=== PATIENT | female | born 1985 | race African-American/Black ===

== ENCOUNTER 2021-09-29 10:11 | Inpatient (IN) ==
[2021-09-29 10:39] LABS: Basophils % 0.4 % (0.0-0.8); Eosinophils # 0.4 10*3/uL (0.0-0.87); Eosinophils % 5.7 % (0.00-10.9); Hematocrit 24.9 VOL% (35.7-47.0); Hemoglobin 7.5 GM/DL (12.0-16.0); Immature Granulocytes % 0.3 %; Immature Granulocytes Absolute 0.02 #; Lymphocytes # 0.9 10*3/uL (1.4-4.0); Lymphocytes % 13.1 % (21.3-54.2); Mean Corpuscular HGB Conc 30.1 GM/DL (32-36); Mean Corpuscular Volume 88.3 FL (87-102); Mean Platelet Volume 10.1 FL (9.6-12.0); Monocytes % 7.1 % (1.7-12.7); Neutrophils % 73.4 % (38.7-73.9); Platelet Count 292 T/CUMM (130-400); Red Blood Count 2.82 MC/CUMM (3.8-5.5); Red Cell Distribution Width 19.5 % (9.3-17.3); White Blood Count 6.8 T/CUMM (4-12)
[2021-09-29] MEDS ORDERED: ASPIRIN 325 MG TABLET PO STA (10:44)
[2021-09-29 10:58] LABS: Albumin 2.9 G/DL (3.4-5.0); Bilirubin,Total 0.5 MG/DL (0.20-1.00); Calcium 10.4 MG/DL (8.5-10.1); Osmolality,Calculated 280.7 MOS/KG (273-304); Potassium 4.1 MMOL/L (3.5-5.1); Total Protein 6.8 G/DL (6.4-8.2)
[2021-09-29] MEDS ORDERED: ONDANSETRON 4 MG/2 ML VIAL IV STA (12:19)
[2021-09-29] MEDS ORDERED: HYDROmorphone 2 MG/1 ML VIAL IV STA (12:19)
[2021-09-29] MEDS ORDERED: guaiFENesin/DM ER 600-30 MG TABLET PO PRN (12:53)
[2021-09-29] MEDS ORDERED: DEXTROSE 50% 25 GM/50 ML SYRINGE IV PRN (12:53)
[2021-09-29] MEDS ORDERED: GLUCAGON 1 MG VIAL IM PRN (12:53)
[2021-09-29] MEDS: AZITHROMYCIN 250 MG TABLET PO SCH (14:27)
[2021-09-29] MEDS: cefTRIAXone 1,000 MG in SODIUM CHLORIDE 0.9% 100 ML IV SCH (14:27)
[2021-09-29] MEDS: INSULIN LISPRO 100 UNIT/ML SUBCUT SCH ×2 (17:22→22:17)
[2021-09-29] MEDS: ACETAMINOPHEN 325 MG TABLET PO PRN (19:49)
[2021-09-29] MEDS: HEPARIN 5,000 UNIT/1 ML VIAL SUBCUT SCH (21:40)
[2021-09-30] MEDS: HYDROmorphone 2 MG/1 ML VIAL IV PRN ×3 (02:27→18:23)
[2021-09-30 05:50] LABS: Basophils % 0.4 % (0.0-0.8); Eosinophils # 0.6 10*3/uL (0.0-0.87); Eosinophils % 5.4 % (0.00-10.9); Hematocrit 24.9 VOL% (35.7-47.0); Hemoglobin 7.6 GM/DL (12.0-16.0); Immature Granulocytes % 0.4 %; Immature Granulocytes Absolute 0.04 #; Lymphocytes # 0.8 10*3/uL (1.4-4.0); Lymphocytes % 8.1 % (21.3-54.2); Mean Corpuscular HGB Conc 30.5 GM/DL (32-36); Mean Corpuscular Volume 88.6 FL (87-102); Mean Platelet Volume 10.2 FL (9.6-12.0); Monocytes % 5.2 % (1.7-12.7); Neutrophils % 80.5 % (38.7-73.9); Platelet Count 290 T/CUMM (130-400); Red Blood Count 2.81 MC/CUMM (3.8-5.5); Red Cell Distribution Width 19.4 % (9.3-17.3); White Blood Count 10.4 T/CUMM (4-12)
[2021-09-30 06:30] LABS: Albumin 2.8 G/DL (3.4-5.0); Bilirubin,Total 1.4 MG/DL (0.20-1.00); Calcium 9.8 MG/DL (8.5-10.1); Osmolality,Calculated 278.8 MOS/KG (273-304); Potassium 4.9 MMOL/L (3.5-5.1); Total Protein 6.8 G/DL (6.4-8.2)
[2021-09-30] MEDS ORDERED: amLODIPine 10 MG TABLET PO SCH (09:00)
[2021-09-30] MEDS: AZITHROMYCIN 250 MG TABLET PO SCH (09:35)
[2021-09-30] MEDS: HEPARIN 5,000 UNIT/1 ML VIAL SUBCUT SCH ×2 (09:35→21:32)
[2021-09-30] MEDS: INSULIN LISPRO 100 UNIT/ML SUBCUT SCH ×4 (10:25→21:52)
[2021-09-30] MEDS ORDERED: ALBUTEROL/IPRATROPIUM 3 ML NEB RESP TX PRN (12:30)
[2021-09-30] MEDS: PANTOPRAZOLE 40 MG TABLET PO SCH (13:31)
[2021-09-30] MEDS: ACETAMINOPHEN 325 MG TABLET PO PRN (13:31)
[2021-09-30] MEDS: cefTRIAXone 1,000 MG in SODIUM CHLORIDE 0.9% 100 ML IV SCH (13:31)
[2021-09-30] MEDS: METOPROLOL TARTRATE 50 MG TABLET PO SCH (21:32)
[2021-10-01] MEDS: ACETAMINOPHEN 325 MG TABLET PO PRN ×3 (01:11→08:56)
[2021-10-01 02:17] LABS: Barbiturates Screen,Urine Negative (Negative); Benzodiazepines Screen,Urine Negative (Negative); Cannabinoid Screen,Urine Negative (Negative); Opiate Screen,Urine Negative (Negative); Phencyclidine Screen,Urine Negative (Negative)
[2021-10-01 05:46] LABS: Basophils % 0.3 % (0.0-0.8); Eosinophils # 0.5 10*3/uL (0.0-0.87); Hematocrit 25.5 VOL% (35.7-47.0); Hemoglobin 7.7 GM/DL (12.0-16.0); Immature Granulocytes % 0.6 %; Immature Granulocytes Absolute 0.04 #; Lymphocytes # 1.1 10*3/uL (1.4-4.0); Mean Corpuscular HGB Conc 30.2 GM/DL (32-36); Mean Corpuscular Volume 88.2 FL (87-102); Mean Platelet Volume 10.3 FL (9.6-12.0); Monocytes % 9.4 % (1.7-12.7); Neutrophils % 65.7 % (38.7-73.9); Platelet Count 248 T/CUMM (130-400); Red Blood Count 2.89 MC/CUMM (3.8-5.5); Red Cell Distribution Width 19.4 % (9.3-17.3); White Blood Count 6.6 T/CUMM (4-12)
[2021-10-01 05:57] LABS: Albumin 2.7 G/DL (3.4-5.0); Bilirubin,Total 0.6 MG/DL (0.20-1.00); Potassium 4.9 MMOL/L (3.5-5.1); Total Protein 6.8 G/DL (6.4-8.2)
[2021-10-01 08:21] LABS: Amorphous Crystals,Urine Few /HPF (Few); Bacteria,Urine Occasional /HPF (Few); Bilirubin,Urine Negative (Negative); Blood, Urine Negative (Negative); Glucose,Urine (UA) 50 mg/dL (Negative); Ketones,Urine Negative (Negative); Nitrite,Urine Negative (Negative); Protein,Urine 100 MG/DL; RBC,Urine 3 /HPF (0-4); Renal Epithelial Cells,Urine Occasional /HPF (<1); Squamous Epithelial Cell,Urine Moderate /HPF (0-10); Urine Appearance Slightly Hazy (Clear); Urine Color Yellow (Yellow); Urine Specific Gravity 1.009 (1.001-1.035); Urine Urobilinogen < 2.0 EU/DL (<2.0)
[2021-10-01] MEDS: AZITHROMYCIN 250 MG TABLET PO SCH (08:56)
[2021-10-01] MEDS: amLODIPine 10 MG TABLET PO SCH (08:56)
[2021-10-01] MEDS: PANTOPRAZOLE 40 MG TABLET PO SCH (08:56)
[2021-10-01] MEDS: METOPROLOL TARTRATE 50 MG TABLET PO SCH ×2 (08:57→21:40)
[2021-10-01] MEDS: HEPARIN 5,000 UNIT/1 ML VIAL SUBCUT SCH ×2 (08:57→21:44)
[2021-10-01] MEDS: INSULIN LISPRO 100 UNIT/ML SUBCUT SCH ×4 (09:36→22:29)
[2021-10-01] MEDS: MORPHINE 2 MG/1 ML SYRINGE IV PRN ×2 (12:34→21:41)
[2021-10-01] MEDS: cefTRIAXone 1,000 MG in SODIUM CHLORIDE 0.9% 100 ML IV SCH (12:34)
[2021-10-02 05:44] LABS: Basophils % 0.5 % (0.0-0.8); Eosinophils # 0.7 10*3/uL (0.0-0.87); Eosinophils % 11.6 % (0.00-10.9); Hematocrit 27.1 VOL% (35.7-47.0); Immature Granulocytes % 0.2 %; Immature Granulocytes Absolute 0.01 #; Lymphocytes # 1.2 10*3/uL (1.4-4.0); Lymphocytes % 21.8 % (21.3-54.2); Mean Corpuscular HGB Conc 29.5 GM/DL (32-36); Mean Corpuscular Volume 88.3 FL (87-102); Mean Platelet Volume 10.6 FL (9.6-12.0); Monocytes % 12.6 % (1.7-12.7); Neutrophils % 53.3 % (38.7-73.9); Platelet Count 260 T/CUMM (130-400); Red Blood Count 3.07 MC/CUMM (3.8-5.5); Red Cell Distribution Width 18.8 % (9.3-17.3); White Blood Count 5.7 T/CUMM (4-12)
[2021-10-02 06:02] LABS: Albumin 2.6 G/DL (3.4-5.0); Bilirubin,Total 0.5 MG/DL (0.20-1.00); Calcium 9.9 MG/DL (8.5-10.1); Osmolality,Calculated 277.8 MOS/KG (273-304); Potassium 4.2 MMOL/L (3.5-5.1); Total Protein 6.8 G/DL (6.4-8.2)
[2021-10-02 06:27] LABS: Eosinophils 13 % (0-10); Lymphocytes 28 % (20-55); Platelet Estimate Normal; Segmented Neutrophils 51 % (50-85); Total Cells Counted 100
[2021-10-02] MEDS: MORPHINE 2 MG/1 ML SYRINGE IV PRN ×3 (07:43→22:12)
[2021-10-02] MEDS: amLODIPine 10 MG TABLET PO SCH (09:04)
[2021-10-02] MEDS: AZITHROMYCIN 250 MG TABLET PO SCH (09:04)
[2021-10-02] MEDS: PANTOPRAZOLE 40 MG TABLET PO SCH (09:04)
[2021-10-02] MEDS: METOPROLOL TARTRATE 50 MG TABLET PO SCH ×2 (09:04→21:20)
[2021-10-02] MEDS: HEPARIN 5,000 UNIT/1 ML VIAL SUBCUT SCH ×2 (09:05→21:20)
[2021-10-02] MEDS: INSULIN LISPRO 100 UNIT/ML SUBCUT SCH ×4 (11:05→21:10)
[2021-10-02] MEDS: cefTRIAXone 1,000 MG in SODIUM CHLORIDE 0.9% 100 ML IV SCH (13:09)
[2021-10-02] MEDS: ONDANSETRON 4 MG/2 ML VIAL IV PRN ×2 (16:05→22:14)
[2021-10-03 05:11] LABS: Basophils % 0.4 % (0.0-0.8); Eosinophils # 0.8 10*3/uL (0.0-0.87); Eosinophils % 12.1 % (0.00-10.9); Hematocrit 27.9 VOL% (35.7-47.0); Hemoglobin 8.4 GM/DL (12.0-16.0); Immature Granulocytes % 0.3 %; Immature Granulocytes Absolute 0.02 #; Lymphocytes # 1.4 10*3/uL (1.4-4.0); Lymphocytes % 21.1 % (21.3-54.2); Mean Corpuscular HGB Conc 30.1 GM/DL (32-36); Mean Corpuscular Volume 86.9 FL (87-102); Mean Platelet Volume 10.9 FL (9.6-12.0); Monocytes % 11.2 % (1.7-12.7); Neutrophils % 54.9 % (38.7-73.9); Platelet Count 237 T/CUMM (130-400); Red Blood Count 3.21 MC/CUMM (3.8-5.5); Red Cell Distribution Width 18.4 % (9.3-17.3); White Blood Count 6.7 T/CUMM (4-12)
[2021-10-03] MEDS: MORPHINE 2 MG/1 ML SYRINGE IV PRN ×3 (05:15→18:25)
[2021-10-03] MEDS: ONDANSETRON 4 MG/2 ML VIAL IV PRN ×3 (05:17→18:26)
[2021-10-03 05:23] LABS: INR 0.9; PT Patient Result 10.6 SECS (10.5-12.0)
[2021-10-03 05:42] LABS: Alanine Aminotransferase 40 U/L (13-56); Albumin 2.7 G/DL (3.4-5.0); Alkaline Phosphatase 186 U/L (45-117); Aspartate Amino Transferase 36 U/L (0-37); Bilirubin,Total < 0.39 MG/DL (0.20-1.00); Blood Urea Nitrogen 47 MG/DL (7-18); Calcium 9.6 MG/DL (8.5-10.1); Carbon Dioxide 21 MMOL/L (21-32); Estimated Glom Filtration Rate 7 ML/MIN; Glucose 80 MG/DL (74-106); Osmolality,Calculated 280.1 MOS/KG (273-304); Sodium 135 MMOL/L (136-145)
[2021-10-03 05:44] LABS: Eosinophils 9 % (0-10); Hypochromasia 1+; Lymphocytes 24 % (20-55); Microcytosis 1+; Platelet Estimate Adequate; Segmented Neutrophils 56 % (50-85); Total Cells Counted 100
[2021-10-03] MEDS: INSULIN LISPRO 100 UNIT/ML SUBCUT SCH ×3 (08:14→16:19)
[2021-10-03] MEDS: amLODIPine 10 MG TABLET PO SCH (09:39)
[2021-10-03] MEDS: AZITHROMYCIN 250 MG TABLET PO SCH (09:39)
[2021-10-03] MEDS: PANTOPRAZOLE 40 MG TABLET PO SCH (09:39)
[2021-10-03] MEDS: METOPROLOL TARTRATE 50 MG TABLET PO SCH ×2 (09:39→22:38)
[2021-10-03] MEDS: HEPARIN 5,000 UNIT/1 ML VIAL SUBCUT SCH ×2 (09:41→22:38)
[2021-10-03] MEDS: cefTRIAXone 1,000 MG in SODIUM CHLORIDE 0.9% 100 ML IV SCH (16:25)
[2021-10-04] MEDS: ONDANSETRON 4 MG/2 ML VIAL IV PRN ×3 (00:21→12:08)
[2021-10-04] MEDS: MORPHINE 2 MG/1 ML SYRINGE IV PRN ×3 (00:23→12:07)
[2021-10-04] MEDS: INSULIN LISPRO 100 UNIT/ML SUBCUT SCH ×3 (00:49→12:33)
[2021-10-04 05:19] LABS: Basophils # 0.1 10*3/uL (0.0-0.2); Basophils % 0.9 % (0.0-0.8); Eosinophils # 0.9 10*3/uL (0.0-0.87); Eosinophils % 15.2 % (0.00-10.9); Hematocrit 27.2 VOL% (35.7-47.0); Hemoglobin 8.1 GM/DL (12.0-16.0); Immature Granulocytes % 0.4 %; Immature Granulocytes Absolute 0.02 #; Lymphocytes # 1.4 10*3/uL (1.4-4.0); Lymphocytes % 24.1 % (21.3-54.2); Mean Corpuscular HGB Conc 29.8 GM/DL (32-36); Mean Corpuscular Volume 86.9 FL (87-102); Mean Platelet Volume 9.8 FL (9.6-12.0); Monocytes % 11.8 % (1.7-12.7); Neutrophils % 47.6 % (38.7-73.9); Platelet Count 272 T/CUMM (130-400); Red Blood Count 3.13 MC/CUMM (3.8-5.5); Red Cell Distribution Width 18.4 % (9.3-17.3); White Blood Count 5.6 T/CUMM (4-12)
[2021-10-04 05:52] LABS: Alanine Aminotransferase 35 U/L (13-56); Albumin 2.8 G/DL (3.4-5.0); Alkaline Phosphatase 176 U/L (45-117); Aspartate Amino Transferase 21 U/L (0-37); Bilirubin,Total < 0.39 MG/DL (0.20-1.00); Blood Urea Nitrogen 37 MG/DL (7-18); Calcium 10.3 MG/DL (8.5-10.1); Carbon Dioxide 25 MMOL/L (21-32); Estimated Glom Filtration Rate 8 ML/MIN; Glucose 77 MG/DL (74-106); Potassium 4.7 MMOL/L (3.5-5.1); Sodium 136 MMOL/L (136-145)
[2021-10-04 05:53] LABS: Eosinophils 16 % (0-10); Hypochromasia 1+; Lymphocytes 24 % (20-55); Microcytosis 1+; Platelet Estimate Adequate; Segmented Neutrophils 53 % (50-85); Total Cells Counted 100
[2021-10-04] MEDS: HEPARIN 5,000 UNIT/1 ML VIAL SUBCUT SCH (08:35)
[2021-10-04] MEDS: amLODIPine 10 MG TABLET PO SCH (08:36)
[2021-10-04] MEDS: PANTOPRAZOLE 40 MG TABLET PO SCH (08:36)
[2021-10-04] MEDS: AZITHROMYCIN 250 MG TABLET PO SCH (08:36)
[2021-10-04] MEDS: METOPROLOL TARTRATE 50 MG TABLET PO SCH (08:36)
[2021-10-04 10:27] LABS: Lymphocytes,Pleural Fluid 45 %; Monocytes,Pleural Fluid 9 %; Neutrophils,Pleural Fluid 46 %
[2021-10-04 10:32] LABS: RBC,Pleural Fluid 111 T/CUMM
[2021-10-04 10:50] LABS: Total Protein,Body Fluid 2.1 G/DL
[2021-10-04] MEDS: cefTRIAXone 1,000 MG in SODIUM CHLORIDE 0.9% 100 ML IV SCH (12:08)
[2021-10-04 12:17] VITALS: BP 141/93
== END 2021-10-04 15:33 | disposition home or self-care (01) | DRG 189 ==
LOC: EDBD → EDUNIT# → N.ED 10:11 → N.TELES 12:53 → SUATTDRO 12:53 → N.TELES 16:44
PROVIDERS: ADMIT Internal Medicine; ATTEND Internal Medicine

== ENCOUNTER 2021-11-03 19:12 | Inpatient (IN) ==
[2021-11-03] MEDS ORDERED: ONDANSETRON 4 MG/2 ML VIAL IV STA (20:05)
[2021-11-03] MEDS ORDERED: MORPHINE 2 MG/1 ML SYRINGE IV STA (20:05)
[2021-11-03 20:41] LABS: Basophils % 0.4 % (0.0-0.8); Eosinophils # 0.2 10*3/uL (0.0-0.87); Eosinophils % 2.8 % (0.00-10.9); Hematocrit 28.3 VOL% (35.7-47.0); Hemoglobin 8.7 GM/DL (12.0-16.0); Immature Granulocytes % 0.5 %; Immature Granulocytes Absolute 0.04 #; Lymphocytes # 0.6 10*3/uL (1.4-4.0); Lymphocytes % 7.7 % (21.3-54.2); Mean Corpuscular HGB Conc 30.7 GM/DL (32-36); Mean Corpuscular Volume 85.8 FL (87-102); Mean Platelet Volume 10.2 FL (9.6-12.0); Monocytes % 5.4 % (1.7-12.7); Neutrophils % 83.2 % (38.7-73.9); Platelet Count 178 T/CUMM (130-400); Red Cell Distribution Width 19.2 % (9.3-17.3); White Blood Count 8.1 T/CUMM (4-12)
[2021-11-03] MEDS ORDERED: hydrALAZINE 20 MG/1 ML VIAL IV STA (21:03)
[2021-11-03] MEDS ORDERED: HYDROmorphone 2 MG/1 ML VIAL IV ONE (21:18)
[2021-11-03 21:19] LABS: Albumin 3.1 G/DL (3.4-5.0); Bilirubin,Total 0.9 MG/DL (0.20-1.00); Calcium 9.3 MG/DL (8.5-10.1); Osmolality,Calculated 280.7 MOS/KG (273-304); Potassium 3.8 MMOL/L (3.5-5.1); Total Protein 7.3 G/DL (6.4-8.2)
[2021-11-03] MEDS ORDERED: ACETAMINOPHEN 325 MG TABLET PO PRN (21:41)
[2021-11-03] MEDS ORDERED: DEXTROSE 10% 250 ML BAG IV PRN (21:41)
[2021-11-03] MEDS ORDERED: LABETALOL 20 MG/4 ML SYRINGE IV STA (21:41)
[2021-11-03] MEDS ORDERED: GLUCAGON 1 MG VIAL IM PRN (21:41)
[2021-11-03] MEDS ORDERED: ONDANSETRON 4 MG/2 ML VIAL IV PRN (21:41)
[2021-11-04] MEDS: HYDROmorphone 2 MG/1 ML VIAL IV PRN ×3 (03:25→19:50)
[2021-11-04 05:24] LABS: Basophils % 0.2 % (0.0-0.8); Eosinophils # 0.3 10*3/uL (0.0-0.87); Eosinophils % 3.2 % (0.00-10.9); Hematocrit 23.2 VOL% (35.7-47.0); Immature Granulocytes % 0.4 %; Immature Granulocytes Absolute 0.03 #; Lymphocytes # 0.6 10*3/uL (1.4-4.0); Lymphocytes % 7.7 % (21.3-54.2); Mean Corpuscular HGB Conc 30.6 GM/DL (32-36); Mean Corpuscular Volume 86.2 FL (87-102); Mean Platelet Volume 10.5 FL (9.6-12.0); Monocytes % 7.1 % (1.7-12.7); Neutrophils % 81.4 % (38.7-73.9); Platelet Count 176 T/CUMM (130-400); Red Blood Count 2.69 MC/CUMM (3.8-5.5); Red Cell Distribution Width 19.2 % (9.3-17.3); White Blood Count 8.2 T/CUMM (4-12)
[2021-11-04 05:27] LABS: Calcium 9.9 MG/DL (8.5-10.1)
[2021-11-04 05:30] LABS: Hemoglobin 7.1 GM/DL (12.0-16.0)
[2021-11-04 06:16] LABS: Eosinophils 4 % (0-10); Hypochromia 1+; Lymphocytes 7 % (20-55); Microcytosis 1+; Platelet Estimate Adequate; Segmented Neutrophils 81 % (50-85); Total Cells Counted 100
[2021-11-04] MEDS: cefTRIAXone 1,000 MG in SODIUM CHLORIDE 0.9% 100 ML IV SCH (08:21)
[2021-11-04] MEDS ORDERED: MIDAZOLAM 2 MG/2 ML VIAL IV ONE (10:04)
[2021-11-04] MEDS ORDERED: fentaNYL 100 MCG/2 ML VIAL IV ONE (10:04)
[2021-11-04] MEDS: hydrALAZINE 20 MG/1 ML VIAL IV PRN ×2 (10:06→20:10)
[2021-11-04] MEDS: AZITHROMYCIN INJ 500 MG in SODIUM CHLORIDE 0.9% 250 ML IV SCH (10:06)
[2021-11-04 10:15] LABS: PT Patient Result 11.6 SECS (10.5-12.0)
[2021-11-04] MEDS: SODIUM CHLORIDE 0.45% 1,000 ML IV SCH (10:45)
[2021-11-04] MEDS ORDERED: LABETALOL 20 MG/4 ML SYRINGE IV ONE (13:06)
[2021-11-04] MEDS: PANTOPRAZOLE 40 MG TABLET PO SCH (17:29)
[2021-11-04 20:03] LABS: Hematocrit 24.6 VOL% (35.7-47.0); Hemoglobin 7.2 GM/DL (12.0-16.0)
[2021-11-05] MEDS: HYDROmorphone 2 MG/1 ML VIAL IV PRN ×4 (00:16→18:47)
[2021-11-05 05:11] LABS: Basophils % 0.2 % (0.0-0.8); Eosinophils # 0.2 10*3/uL (0.0-0.87); Hematocrit 21.4 VOL% (35.7-47.0); Immature Granulocytes % 0.4 %; Immature Granulocytes Absolute 0.03 #; Lymphocytes # 0.7 10*3/uL (1.4-4.0); Lymphocytes % 8.7 % (21.3-54.2); Mean Corpuscular HGB Conc 29.9 GM/DL (32-36); Mean Corpuscular Volume 88.4 FL (87-102); Mean Platelet Volume 10.1 FL (9.6-12.0); Monocytes % 9.5 % (1.7-12.7); Neutrophils % 78.2 % (38.7-73.9); Platelet Count 157 T/CUMM (130-400); Red Blood Count 2.42 MC/CUMM (3.8-5.5); Red Cell Distribution Width 18.6 % (9.3-17.3)
[2021-11-05 05:25] LABS: Calcium 9.6 MG/DL (8.5-10.1); Osmolality,Calculated 276.8 MOS/KG (273-304); Potassium 4.5 MMOL/L (3.5-5.1)
[2021-11-05 05:28] LABS: Hemoglobin 6.4 GM/DL (12.0-16.0)
[2021-11-05] MEDS: cefTRIAXone 1,000 MG in SODIUM CHLORIDE 0.9% 100 ML IV SCH (06:37)
[2021-11-05] MEDS: AZITHROMYCIN INJ 500 MG in SODIUM CHLORIDE 0.9% 250 ML IV SCH (07:12)
[2021-11-05] MEDS ORDERED: SODIUM CHLORIDE 0.9% 1,000 ML IV PRN (08:40)
[2021-11-05] MEDS: SEVELAMER CARBONATE 800 MG TABLET PO SCH ×3 (09:12→17:22)
[2021-11-05] MEDS: PANTOPRAZOLE 40 MG TABLET PO SCH (09:45)
[2021-11-05] MEDS: SODIUM CHLORIDE 0.45% 1,000 ML IV SCH (12:57)
[2021-11-05] MEDS: hydrALAZINE 20 MG/1 ML VIAL IV PRN (14:48)
[2021-11-05] MEDS: PIPERACILLIN/TAZOBACTAM 3,375 MG in SODIUM CHLORIDE 0.9% 100 ML IV SCH (18:30)
[2021-11-05 18:34] LABS: Hematocrit 25.8 VOL% (35.7-47.0)
[2021-11-05 18:35] LABS: Hemoglobin 8.1 GM/DL (12.0-16.0)
[2021-11-05] MEDS: lisinopriL 10 MG TABLET PO SCH (21:00)
[2021-11-06] MEDS: HYDROmorphone 2 MG/1 ML VIAL IV PRN ×5 (00:05→20:59)
[2021-11-06 05:15] LABS: Calcium 9.5 MG/DL (8.5-10.1); Potassium 4.7 MMOL/L (3.5-5.1)
[2021-11-06] MEDS: PIPERACILLIN/TAZOBACTAM 3,375 MG in SODIUM CHLORIDE 0.9% 100 ML IV SCH ×2 (05:56→18:20)
[2021-11-06 06:01] LABS: Basophils % 0.3 % (0.0-0.8); Eosinophils # 0.4 10*3/uL (0.0-0.87); Eosinophils % 4.5 % (0.00-10.9); Hematocrit 25.7 VOL% (35.7-47.0); Hemoglobin 7.8 GM/DL (12.0-16.0); Immature Granulocytes % 0.3 %; Immature Granulocytes Absolute 0.02 #; Lymphocytes # 0.8 10*3/uL (1.4-4.0); Lymphocytes % 9.5 % (21.3-54.2); Mean Corpuscular HGB Conc 30.4 GM/DL (32-36); Mean Corpuscular Volume 87.1 FL (87-102); Mean Platelet Volume 9.9 FL (9.6-12.0); Monocytes % 10.8 % (1.7-12.7); Neutrophils % 74.6 % (38.7-73.9); Platelet Count 161 T/CUMM (130-400); Red Blood Count 2.95 MC/CUMM (3.8-5.5); Red Cell Distribution Width 17.3 % (9.3-17.3)
[2021-11-06] MEDS: AZITHROMYCIN INJ 500 MG in SODIUM CHLORIDE 0.9% 250 ML IV SCH (06:43)
[2021-11-06] MEDS: SEVELAMER CARBONATE 800 MG TABLET PO SCH ×3 (09:39→18:20)
[2021-11-06] MEDS: PANTOPRAZOLE 40 MG TABLET PO SCH (09:39)
[2021-11-06] MEDS: lisinopriL 10 MG TABLET PO SCH (09:39)
[2021-11-06] MEDS: SODIUM CHLORIDE 0.45% 1,000 ML IV SCH (09:52)
[2021-11-06 14:56] LABS: Hematocrit 24.3 VOL% (35.7-47.0); Hemoglobin 7.6 GM/DL (12.0-16.0)
[2021-11-07 04:56] LABS: Basophils % 0.4 % (0.0-0.8); Eosinophils # 0.4 10*3/uL (0.0-0.87); Eosinophils % 5.2 % (0.00-10.9); Hematocrit 24.6 VOL% (35.7-47.0); Hemoglobin 7.4 GM/DL (12.0-16.0); Immature Granulocytes % 0.5 %; Immature Granulocytes Absolute 0.04 #; Lymphocytes # 0.9 10*3/uL (1.4-4.0); Mean Corpuscular HGB Conc 30.1 GM/DL (32-36); Mean Corpuscular Volume 86.3 FL (87-102); Mean Platelet Volume 10.1 FL (9.6-12.0); Monocytes % 9.1 % (1.7-12.7); Neutrophils % 73.8 % (38.7-73.9); Platelet Count 212 T/CUMM (130-400); Red Blood Count 2.85 MC/CUMM (3.8-5.5); Red Cell Distribution Width 17.2 % (9.3-17.3); White Blood Count 8.2 T/CUMM (4-12)
[2021-11-07] MEDS: HYDROmorphone 2 MG/1 ML VIAL IV PRN ×4 (05:08→21:17)
[2021-11-07 05:16] LABS: Calcium 9.2 MG/DL (8.5-10.1); Osmolality,Calculated 276.1 MOS/KG (273-304); Potassium 4.9 MMOL/L (3.5-5.1)
[2021-11-07] MEDS: AZITHROMYCIN INJ 500 MG in SODIUM CHLORIDE 0.9% 250 ML IV SCH (06:15)
[2021-11-07] MEDS: PIPERACILLIN/TAZOBACTAM 3,375 MG in SODIUM CHLORIDE 0.9% 100 ML IV SCH ×2 (06:15→17:48)
[2021-11-07] MEDS: PANTOPRAZOLE 40 MG TABLET PO SCH (09:09)
[2021-11-07] MEDS: SEVELAMER CARBONATE 800 MG TABLET PO SCH ×3 (09:09→17:36)
[2021-11-07] MEDS: lisinopriL 20 MG TABLET PO SCH (09:09)
[2021-11-07] MEDS: SODIUM CHLORIDE 0.45% 1,000 ML IV SCH (14:44)
[2021-11-07 15:10] LABS: Hematocrit 24.6 VOL% (35.7-47.0); Hemoglobin 7.6 GM/DL (12.0-16.0)
[2021-11-07] MEDS ORDERED: POLYETHYLENE GLYCOL POWDER 17 GM PACK PO PRN (19:43)
[2021-11-08] MEDS: HYDROmorphone 2 MG/1 ML VIAL IV PRN ×6 (01:15→23:57)
[2021-11-08 05:42] LABS: Basophils % 0.4 % (0.0-0.8); Eosinophils # 0.4 10*3/uL (0.0-0.87); Eosinophils % 6.1 % (0.00-10.9); Hematocrit 24.7 VOL% (35.7-47.0); Hemoglobin 7.6 GM/DL (12.0-16.0); Immature Granulocytes % 0.4 %; Immature Granulocytes Absolute 0.03 #; Lymphocytes # 0.7 10*3/uL (1.4-4.0); Lymphocytes % 10.5 % (21.3-54.2); Mean Corpuscular HGB Conc 30.8 GM/DL (32-36); Mean Corpuscular Volume 86.7 FL (87-102); Mean Platelet Volume 10.3 FL (9.6-12.0); Monocytes % 9.2 % (1.7-12.7); Neutrophils % 73.4 % (38.7-73.9); Platelet Count 257 T/CUMM (130-400); Red Blood Count 2.85 MC/CUMM (3.8-5.5); Red Cell Distribution Width 17.1 % (9.3-17.3); White Blood Count 6.8 T/CUMM (4-12)
[2021-11-08 06:08] LABS: Calcium 9.9 MG/DL (8.5-10.1); Potassium 4.6 MMOL/L (3.5-5.1)
[2021-11-08] MEDS: AZITHROMYCIN INJ 500 MG in SODIUM CHLORIDE 0.9% 250 ML IV SCH (06:08)
[2021-11-08] MEDS: PIPERACILLIN/TAZOBACTAM 3,375 MG in SODIUM CHLORIDE 0.9% 100 ML IV SCH ×2 (06:48→18:23)
[2021-11-08] MEDS: lisinopriL 20 MG TABLET PO SCH (09:11)
[2021-11-08] MEDS: PANTOPRAZOLE 40 MG TABLET PO SCH (09:11)
[2021-11-08] MEDS: SEVELAMER CARBONATE 800 MG TABLET PO SCH ×3 (09:11→16:09)
[2021-11-08] MEDS: SODIUM CHLORIDE 0.45% 1,000 ML IV SCH (13:22)
[2021-11-08 15:03] LABS: Hematocrit 25.5 VOL% (35.7-47.0)
[2021-11-08] MEDS: hydrALAZINE 20 MG/1 ML VIAL IV PRN (15:54)
[2021-11-09] MEDS: HYDROmorphone 2 MG/1 ML VIAL IV PRN ×3 (02:35→11:47)
[2021-11-09 04:38] LABS: Basophils % 0.6 % (0.0-0.8); Eosinophils # 0.3 10*3/uL (0.0-0.87); Eosinophils % 5.4 % (0.00-10.9); Hematocrit 26.9 VOL% (35.7-47.0); Hemoglobin 8.2 GM/DL (12.0-16.0); Immature Granulocytes % 0.5 %; Immature Granulocytes Absolute 0.03 #; Lymphocytes # 0.8 10*3/uL (1.4-4.0); Lymphocytes % 13.3 % (21.3-54.2); Mean Corpuscular HGB Conc 30.5 GM/DL (32-36); Mean Corpuscular Volume 85.9 FL (87-102); Mean Platelet Volume 10.2 FL (9.6-12.0); Monocytes % 9.8 % (1.7-12.7); Neutrophils % 70.4 % (38.7-73.9); Platelet Count 289 T/CUMM (130-400); Red Blood Count 3.13 MC/CUMM (3.8-5.5); Red Cell Distribution Width 16.9 % (9.3-17.3); White Blood Count 6.2 T/CUMM (4-12)
[2021-11-09 04:58] LABS: Osmolality,Calculated 270.1 MOS/KG (273-304); Potassium 4.7 MMOL/L (3.5-5.1)
[2021-11-09] MEDS: AZITHROMYCIN INJ 500 MG in SODIUM CHLORIDE 0.9% 250 ML IV SCH (06:35)
[2021-11-09] MEDS: PIPERACILLIN/TAZOBACTAM 3,375 MG in SODIUM CHLORIDE 0.9% 100 ML IV SCH ×2 (07:41→19:06)
[2021-11-09] MEDS: PANTOPRAZOLE 40 MG TABLET PO SCH (08:54)
[2021-11-09] MEDS: SEVELAMER CARBONATE 800 MG TABLET PO SCH ×3 (08:55→17:20)
[2021-11-09] MEDS ORDERED: amLODIPine 5 MG TABLET PO SCH (09:00)
[2021-11-09] MEDS: lisinopriL 20 MG TABLET PO SCH (11:48)
[2021-11-09] MEDS: SODIUM CHLORIDE 0.45% 1,000 ML IV SCH (12:48)
[2021-11-09 15:00] LABS: Hematocrit 25.5 VOL% (35.7-47.0)
[2021-11-09 18:02] VITALS: BP 171/99
== END 2021-11-09 19:05 | disposition home health service (06) | DRG 981 ==
LOC: EDUNIT# → EDBD → N.EDINP 19:12 → N.ED 19:12 → N.EDINP 11-04 15:30 → N.TELEN 11-04 17:53 → SUATTDRO 11-05 12:03
PROVIDERS: ADMIT Hospitalist; ATTEND Emergency Medicine

== ENCOUNTER 2021-12-14 02:57 | Observation (INO) ==
[2021-12-14] MEDS ORDERED: hydrALAZINE 20 MG/1 ML VIAL IV STA ×2 (03:18→04:32)
[2021-12-14] MEDS ORDERED: MORPHINE 4 MG/1 ML VIAL IV STA ×2 (03:18→05:09)
[2021-12-14] MEDS ORDERED: NITROGLYCERIN 2% OINT 1 INCH/GM PACK TOP STA (03:18)
[2021-12-14] MEDS ORDERED: ASPIRIN 325 MG TABLET PO STA (03:18)
[2021-12-14] MEDS ORDERED: ONDANSETRON 4 MG/2 ML VIAL IV STA (03:18)
[2021-12-14 03:52] LABS: Basophils % 0.6 % (0.0-0.8); Eosinophils # 0.4 10*3/uL (0.0-0.87); Eosinophils % 5.3 % (0.00-10.9); Hematocrit 28.3 VOL% (35.7-47.0); Hemoglobin 8.7 GM/DL (12.0-16.0); Immature Granulocytes % 0.5 %; Immature Granulocytes Absolute 0.03 #; Lymphocytes # 0.9 10*3/uL (1.4-4.0); Lymphocytes % 13.3 % (21.3-54.2); Mean Corpuscular HGB Conc 30.7 GM/DL (32-36); Mean Corpuscular Volume 88.4 FL (87-102); Monocytes % 8.4 % (1.7-12.7); Neutrophils % 71.9 % (38.7-73.9); Platelet Count 188 T/CUMM (130-400); Red Cell Distribution Width 18.6 % (9.3-17.3); White Blood Count 6.6 T/CUMM (4-12)
[2021-12-14 04:08] LABS: PT Patient Result 11.4 SECS (10.5-12.0); Partial Thromboplastin Time 27.6 SECS (23.8-32.1)
[2021-12-14 04:12] LABS: Albumin 3.1 G/DL (3.4-5.0); Bilirubin,Total 0.8 MG/DL (0.20-1.00); Calcium 10.5 MG/DL (8.5-10.1); Osmolality,Calculated 277.1 MOS/KG (273-304); Potassium 3.8 MMOL/L (3.5-5.1)
[2021-12-14] MEDS ORDERED: ACETAMINOPHEN 325 MG TABLET PO PRN (05:08)
[2021-12-14] MEDS ORDERED: GLUCAGON 1 MG VIAL IM PRN (05:08)
[2021-12-14] MEDS ORDERED: LABETALOL 20 MG/4 ML SYRINGE IV PRN (05:08)
[2021-12-14] MEDS ORDERED: DEXTROSE 10% 250 ML BAG IV PRN (05:08)
[2021-12-14] MEDS ORDERED: ONDANSETRON 4 MG/2 ML VIAL IV PRN (05:08)
[2021-12-14] MEDS ORDERED: ALBUTEROL/IPRATROPIUM 3 ML NEB RESP TX PRN (05:28)
[2021-12-14 05:44] LABS: Risk Ratio 2.05; Thyroid Stimulating Hormone 1.95 uIU/ml (0.358-3.74)
[2021-12-14] MEDS ORDERED: POLYETHYLENE GLYCOL POWDER 255 GM BOTTLE PO SCH (09:00)
[2021-12-14] MEDS ORDERED: minoxidiL 10 MG TABLET PO SCH (09:00)
[2021-12-14] MEDS: PANTOPRAZOLE 40 MG TABLET PO SCH (09:57)
[2021-12-14] MEDS: carvediloL 12.5 MG TABLET PO SCH ×2 (09:58→20:22)
[2021-12-14] MEDS: FAMOTIDINE 20 MG TABLET PO SCH ×2 (09:58→20:22)
[2021-12-14] MEDS: HEPARIN 5,000 UNIT/1 ML VIAL SUBCUT SCH ×2 (09:59→20:22)
[2021-12-14] MEDS: POLYETHYLENE GLYCOL POWDER 17 GM PACK PO SCH (10:01)
[2021-12-14] MEDS ORDERED: cloNIDine 0.1 MG TABLET PO ONE (16:42)
[2021-12-14] MEDS: MORPHINE 4 MG/1 ML VIAL IV PRN (19:38)
[2021-12-15] MEDS: MORPHINE 4 MG/1 ML VIAL IV PRN (01:14)
[2021-12-15] MEDS ORDERED: HYDROcodone/CHLORPHENIRAMINE ER 5 ML UDCUP PO PRN (01:17)
[2021-12-15 05:41] LABS: Basophils % 0.8 % (0.0-0.8); Eosinophils # 0.3 10*3/uL (0.0-0.87); Eosinophils % 8.3 % (0.00-10.9); Hematocrit 27.2 VOL% (35.7-47.0); Hemoglobin 8.3 GM/DL (12.0-16.0); Immature Granulocytes % 0.3 %; Immature Granulocytes Absolute 0.01 #; Lymphocytes # 0.9 10*3/uL (1.4-4.0); Lymphocytes % 22.6 % (21.3-54.2); Mean Corpuscular HGB Conc 30.5 GM/DL (32-36); Mean Corpuscular Volume 90.1 FL (87-102); Mean Platelet Volume 11.2 FL (9.6-12.0); Monocytes % 9.9 % (1.7-12.7); Neutrophils % 58.1 % (38.7-73.9); Platelet Count 149 T/CUMM (130-400); Red Blood Count 3.02 MC/CUMM (3.8-5.5); Red Cell Distribution Width 18.4 % (9.3-17.3); White Blood Count 3.9 T/CUMM (4-12)
[2021-12-15 05:59] LABS: Calcium 10.2 MG/DL (8.5-10.1); Potassium 4.2 MMOL/L (3.5-5.1)
[2021-12-15] MEDS: FAMOTIDINE 20 MG TABLET PO SCH ×2 (08:48→20:29)
[2021-12-15] MEDS: PANTOPRAZOLE 40 MG TABLET PO SCH (08:48)
[2021-12-15] MEDS: minoxidiL 2.5 MG TABLET PO SCH (08:48)
[2021-12-15] MEDS: POLYETHYLENE GLYCOL POWDER 17 GM PACK PO SCH (08:49)
[2021-12-15] MEDS: HEPARIN 5,000 UNIT/1 ML VIAL SUBCUT SCH ×2 (08:49→20:29)
[2021-12-15] MEDS: carvediloL 12.5 MG TABLET PO SCH ×2 (08:49→20:29)
[2021-12-15] MEDS: ISOSORBIDE MONONITRATE 60 MG TABLET PO SCH (08:53)
[2021-12-16] MEDS: MORPHINE 4 MG/1 ML VIAL IV PRN (08:14)
[2021-12-16] MEDS ORDERED: diphenhydrAMINE CAP 25 MG CAPSULE PO ONE (08:27)
[2021-12-16] MEDS: HEPARIN 5,000 UNIT/1 ML VIAL SUBCUT SCH (10:24)
[2021-12-16] MEDS: FAMOTIDINE 20 MG TABLET PO SCH (10:25)
[2021-12-16] MEDS: ISOSORBIDE MONONITRATE 60 MG TABLET PO SCH (10:25)
[2021-12-16] MEDS: minoxidiL 2.5 MG TABLET PO SCH (10:25)
[2021-12-16] MEDS: PANTOPRAZOLE 40 MG TABLET PO SCH (10:26)
[2021-12-16] MEDS: POLYETHYLENE GLYCOL POWDER 17 GM PACK PO SCH (10:27)
[2021-12-16] MEDS: carvediloL 12.5 MG TABLET PO SCH (10:27)
[2021-12-16 16:40] VITALS: BP 127/54
== END 2021-12-16 18:18 | disposition home or self-care (01) ==
LOC: SUATTDRO → EDBD → EDUNIT# → N.ED 02:57 → N.EDINP 02:57 → SUATTDRO 05:08 → N.EDINP 17:38 → N.TELES 18:34
PROVIDERS: ADMIT Internal Medicine; ATTEND Internal Medicine

== ENCOUNTER 2022-02-26 21:04 | Inpatient (IN) ==
[2022-02-26] MEDS ORDERED: FUROSEMIDE 100 MG/10 ML VIAL IV STA (21:22)
[2022-02-26] MEDS ORDERED: MORPHINE 2 MG/1 ML SYRINGE IV STA (21:22)
[2022-02-26] MEDS ORDERED: methylPREDNISolone SOD SUC 125 MG/2 ML VIAL IV STA (21:22)
[2022-02-26] MEDS ORDERED: ONDANSETRON 4 MG/2 ML VIAL IV STA (21:22)
[2022-02-26] MEDS ORDERED: ALBUTEROL/IPRATROPIUM 3 ML NEB RESP TX STA (21:22)
[2022-02-26 21:55] LABS: Basophils % 0.6 % (0.0-0.8); Eosinophils # 0.5 10*3/uL (0.0-0.87); Eosinophils % 7.3 % (0.00-10.9); Hematocrit 26.6 VOL% (35.7-47.0); Hemoglobin 8.4 GM/DL (12.0-16.0); Immature Granulocytes % 0.9 %; Immature Granulocytes Absolute 0.06 #; Lymphocytes # 0.7 10*3/uL (1.4-4.0); Mean Corpuscular HGB Conc 31.6 GM/DL (32-36); Mean Corpuscular Volume 83.6 FL (87-102); Monocytes # 0.5 10*3/uL (0.11-0.8); Monocytes % 6.8 % (1.7-12.7); Neutrophils % 74.4 % (38.7-73.9); Platelet Count 227 T/CUMM (130-400); Red Blood Count 3.18 MC/CUMM (3.8-5.5); Red Cell Distribution Width 18.4 % (9.3-17.3); White Blood Count 6.9 T/CUMM (4-12)
[2022-02-26 22:05] LABS: INR 1.1; PT Patient Result 11.7 SECS (10.5-12.0)
[2022-02-26 22:26] LABS: Albumin 3.5 G/DL (3.4-5.0); Bilirubin,Total 1.1 MG/DL (0.20-1.00); Calcium 8.8 MG/DL (8.5-10.1); Osmolality,Calculated 282.5 MOS/KG (273-304); Potassium 3.7 MMOL/L (3.5-5.1)
[2022-02-26] MEDS ORDERED: ONDANSETRON 4 MG/2 ML VIAL IV PRN (23:32)
[2022-02-26] MEDS ORDERED: ACETAMINOPHEN 325 MG TABLET PO PRN (23:32)
[2022-02-26] MEDS ORDERED: hydrALAZINE 20 MG/1 ML VIAL IV PRN (23:32)
[2022-02-27] MEDS: ALBUTEROL/IPRATROPIUM 3 ML NEB RESP TX SCH ×4 (01:14→19:34)
[2022-02-27] MEDS: MORPHINE 2 MG/1 ML SYRINGE IV PRN ×2 (02:58→09:27)
[2022-02-27 07:10] LABS: Basophils % 0.3 % (0.0-0.8); Eosinophils % 0.3 % (0.00-10.9); Hematocrit 27.4 VOL% (35.7-47.0); Hemoglobin 8.4 GM/DL (12.0-16.0); Immature Granulocytes % 0.8 %; Immature Granulocytes Absolute 0.05 #; Lymphocytes # 0.3 10*3/uL (1.4-4.0); Lymphocytes % 4.4 % (21.3-54.2); Mean Corpuscular HGB Conc 30.7 GM/DL (32-36); Mean Corpuscular Volume 85.1 FL (87-102); Mean Platelet Volume 10.7 FL (9.6-12.0); Monocytes # 0.1 10*3/uL (0.11-0.8); Monocytes % 1.2 % (1.7-12.7); Platelet Count 237 T/CUMM (130-400); Red Blood Count 3.22 MC/CUMM (3.8-5.5); Red Cell Distribution Width 18.7 % (9.3-17.3); White Blood Count 6.6 T/CUMM (4-12)
[2022-02-27 07:43] LABS: Eosinophils 1 % (0-10); Lymphocytes 3 % (20-55); Platelet Estimate Adequate; Total Cells Counted 100
[2022-02-27 07:44] LABS: Hypochromia Slight; Microcytosis Slight
[2022-02-27 08:22] LABS: Albumin 3.3 G/DL (3.4-5.0); Bilirubin,Total 0.9 MG/DL (0.20-1.00); Calcium 9.4 MG/DL (8.5-10.1); Osmolality,Calculated 284.8 MOS/KG (273-304); Potassium 4.3 MMOL/L (3.5-5.1); Total Protein 7.8 G/DL (6.4-8.2)
[2022-02-27] MEDS ORDERED: PANTOPRAZOLE 40 MG TABLET PO SCH (09:00)
[2022-02-27] MEDS: ENOXAPARIN 30 MG/0.3 ML SYRINGE SUBCUT SCH (09:29)
[2022-02-27] MEDS: carvediloL 6.25 MG TABLET PO SCH ×2 (16:33→21:29)
[2022-02-27] MEDS: ISOSORBIDE MONONITRATE 60 MG TABLET PO SCH (16:33)
[2022-02-27] MEDS: amLODIPine 10 MG TABLET PO SCH (16:33)
[2022-02-27] MEDS: POLYETHYLENE GLYCOL POWDER 17 GM PACK PO SCH (16:34)
[2022-02-27] MEDS: PANTOPRAZOLE 40 MG TABLET PO SCH (16:42)
[2022-02-27] MEDS: minoxidiL 2.5 MG TABLET PO SCH (21:29)
[2022-02-28] MEDS: ALBUTEROL/IPRATROPIUM 3 ML NEB RESP TX SCH ×3 (00:40→13:50)
[2022-02-28] MEDS: ISOSORBIDE MONONITRATE 60 MG TABLET PO SCH (08:08)
[2022-02-28] MEDS: carvediloL 6.25 MG TABLET PO SCH (08:08)
[2022-02-28] MEDS: PANTOPRAZOLE 40 MG TABLET PO SCH (08:09)
[2022-02-28] MEDS: ENOXAPARIN 30 MG/0.3 ML SYRINGE SUBCUT SCH (08:09)
[2022-02-28] MEDS: POLYETHYLENE GLYCOL POWDER 17 GM PACK PO SCH (08:09)
[2022-02-28] MEDS: minoxidiL 2.5 MG TABLET PO SCH (08:09)
[2022-02-28] MEDS: amLODIPine 10 MG TABLET PO SCH (09:00)
[2022-02-28 09:53] VITALS: BP 134/69
== END 2022-02-28 14:46 | disposition home or self-care (01) | DRG 291 ==
LOC: EDUNIT# → EDBD → N.ED 21:04 → N.EDINP 23:32 → N.TELEN 02-27 00:37
PROVIDERS: ADMIT Internal Medicine; ATTEND Internal Medicine

== ENCOUNTER 2022-04-21 22:25 | Inpatient (IN) ==
[2022-04-21] MEDS ORDERED: ASPIRIN 325 MG TABLET PO STA (22:49)
[2022-04-21] MEDS ORDERED: hydrALAZINE 20 MG/1 ML VIAL IV STA (22:49)
[2022-04-21] MEDS ORDERED: NITROGLYCERIN 2% OINT 1 INCH/GM PACK TOP STA (22:49)
[2022-04-21] MEDS ORDERED: ONDANSETRON 4 MG/2 ML VIAL IV STA (22:49)
[2022-04-21 23:01] LABS: Basophils % 0.5 % (0.0-0.8); Eosinophils # 0.4 10*3/uL (0.0-0.87); Eosinophils % 7.1 % (0.00-10.9); Hematocrit 24.4 VOL% (35.7-47.0); Hemoglobin 7.6 GM/DL (12.0-16.0); Immature Granulocytes % 0.5 %; Immature Granulocytes Absolute 0.03 #; Lymphocytes % 16.2 % (21.3-54.2); Mean Corpuscular HGB Conc 31.1 GM/DL (32-36); Mean Corpuscular Volume 83.3 FL (87-102); Mean Platelet Volume 10.6 FL (9.6-12.0); Monocytes # 0.6 10*3/uL (0.11-0.8); Monocytes % 10.3 % (1.7-12.7); Neutrophils % 65.4 % (38.7-73.9); Platelet Count 197 T/CUMM (130-400); Red Blood Count 2.93 MC/CUMM (3.8-5.5); Red Cell Distribution Width 18.9 % (9.3-17.3); White Blood Count 6.2 T/CUMM (4-12)
[2022-04-21 23:31] LABS: Calcium 10.2 MG/DL (8.5-10.1); Osmolality,Calculated 292.4 MOS/KG (273-304); Potassium 4.7 MMOL/L (3.5-5.1)
[2022-04-22] MEDS ORDERED: hydrALAZINE 20 MG/1 ML VIAL IV STA (00:40)
[2022-04-22] MEDS ORDERED: LABETALOL 20 MG/4 ML SYRINGE IV STA (00:53)
[2022-04-22] MEDS ORDERED: cloNIDine 0.1 MG TABLET PO STA (01:57)
[2022-04-22] MEDS ORDERED: ACETAMINOPHEN 325 MG TABLET PO PRN (01:57)
[2022-04-22] MEDS ORDERED: GLUCAGON 1 MG VIAL IM PRN (01:57)
[2022-04-22] MEDS ORDERED: DEXTROSE 10% 250 ML BAG IV PRN (01:57)
[2022-04-22] MEDS ORDERED: ONDANSETRON 4 MG/2 ML VIAL IV PRN (01:57)
[2022-04-22 05:19] LABS: Basophils # 0.1 10*3/uL (0.0-0.2); Basophils % 0.9 % (0.0-0.8); Eosinophils # 0.5 10*3/uL (0.0-0.87); Eosinophils % 7.5 % (0.00-10.9); Hematocrit 26.2 VOL% (35.7-47.0); Hemoglobin 8.1 GM/DL (12.0-16.0); Immature Granulocytes % 0.3 %; Immature Granulocytes Absolute 0.02 #; Lymphocytes # 0.8 10*3/uL (1.4-4.0); Lymphocytes % 11.2 % (21.3-54.2); Mean Corpuscular HGB Conc 30.9 GM/DL (32-36); Mean Corpuscular Volume 83.2 FL (87-102); Mean Platelet Volume 10.2 FL (9.6-12.0); Monocytes # 0.7 10*3/uL (0.11-0.8); Monocytes % 10.1 % (1.7-12.7); Platelet Count 198 T/CUMM (130-400); Red Blood Count 3.15 MC/CUMM (3.8-5.5); Red Cell Distribution Width 19.1 % (9.3-17.3)
[2022-04-22 05:50] LABS: Calcium 9.9 MG/DL (8.5-10.1); Osmolality,Calculated 287.8 MOS/KG (273-304); Potassium 4.5 MMOL/L (3.5-5.1); Thyroid Stimulating Hormone 1.81 uIU/ml (0.358-3.74)
[2022-04-22] MEDS: carvediloL 6.25 MG TABLET PO SCH ×2 (07:04→20:00)
[2022-04-22] MEDS: PANTOPRAZOLE 40 MG TABLET PO SCH (09:32)
[2022-04-22 10:29] LABS: Barbiturates Screen,Urine Negative (Negative); Benzodiazepines Screen,Urine Negative (Negative); Cannabinoid Screen,Urine Negative (Negative); Opiate Screen,Urine Negative (Negative); Phencyclidine Screen,Urine Negative (Negative)
[2022-04-22] MEDS: hydrALAZINE 20 MG/1 ML VIAL IV PRN ×2 (12:32→23:57)
[2022-04-22] MEDS: MORPHINE 2 MG/1 ML SYRINGE IV PRN (20:03)
[2022-04-23] MEDS: MORPHINE 2 MG/1 ML SYRINGE IV PRN ×5 (01:15→20:30)
[2022-04-23 06:05] LABS: Basophils # 0.1 10*3/uL (0.0-0.2); Basophils % 0.9 % (0.0-0.8); Eosinophils # 0.7 10*3/uL (0.0-0.87); Eosinophils % 11.3 % (0.00-10.9); Hematocrit 27.1 VOL% (35.7-47.0); Hemoglobin 8.2 GM/DL (12.0-16.0); Immature Granulocytes % 0.3 %; Immature Granulocytes Absolute 0.02 #; Lymphocytes % 16.9 % (21.3-54.2); Mean Corpuscular HGB Conc 30.3 GM/DL (32-36); Mean Corpuscular Volume 85.2 FL (87-102); Mean Platelet Volume 10.4 FL (9.6-12.0); Monocytes # 0.5 10*3/uL (0.11-0.8); Monocytes % 8.6 % (1.7-12.7); Platelet Count 189 T/CUMM (130-400); Red Blood Count 3.18 MC/CUMM (3.8-5.5); Red Cell Distribution Width 18.9 % (9.3-17.3); White Blood Count 5.7 T/CUMM (4-12)
[2022-04-23] MEDS: amLODIPine 10 MG TABLET PO SCH (06:12)
[2022-04-23] MEDS: hydrALAZINE 20 MG/1 ML VIAL IV PRN ×2 (06:12→12:18)
[2022-04-23 06:38] LABS: Eosinophils 11 % (0-10); Hypochromia 1+; Lymphocytes 14 % (20-55); Microcytosis 1+; Target Cells Slight; Total Cells Counted 100
[2022-04-23 06:39] LABS: Anisocytosis 1+; Calcium 10.7 MG/DL (8.5-10.1); Platelet Estimate Normal; Potassium 4.5 MMOL/L (3.5-5.1)
[2022-04-23] MEDS: carvediloL 6.25 MG TABLET PO SCH ×2 (09:34→20:30)
[2022-04-23] MEDS: PANTOPRAZOLE 40 MG TABLET PO SCH (09:34)
[2022-04-23] MEDS: ISOSORBIDE MONONITRATE 60 MG TABLET PO SCH (15:43)
[2022-04-24] MEDS: hydrALAZINE 20 MG/1 ML VIAL IV PRN (00:45)
[2022-04-24] MEDS: MORPHINE 2 MG/1 ML SYRINGE IV PRN ×3 (01:05→09:39)
[2022-04-24 05:26] LABS: Basophils % 0.6 % (0.0-0.8); Eosinophils # 0.6 10*3/uL (0.0-0.87); Eosinophils % 9.8 % (0.00-10.9); Hematocrit 25.8 VOL% (35.7-47.0); Hemoglobin 8.1 GM/DL (12.0-16.0); Immature Granulocytes % 0.3 %; Immature Granulocytes Absolute 0.02 #; Lymphocytes # 0.9 10*3/uL (1.4-4.0); Lymphocytes % 13.7 % (21.3-54.2); Mean Corpuscular HGB Conc 31.4 GM/DL (32-36); Mean Corpuscular Volume 84.6 FL (87-102); Mean Platelet Volume 10.7 FL (9.6-12.0); Monocytes # 0.6 10*3/uL (0.11-0.8); Monocytes % 8.7 % (1.7-12.7); Neutrophils % 66.9 % (38.7-73.9); Platelet Count 224 T/CUMM (130-400); Red Blood Count 3.05 MC/CUMM (3.8-5.5); Red Cell Distribution Width 18.9 % (9.3-17.3); White Blood Count 6.4 T/CUMM (4-12)
[2022-04-24 05:32] LABS: INR 1.1; PT Patient Result 11.6 SECS (10.5-12.0)
[2022-04-24 05:38] LABS: Calcium 10.4 MG/DL (8.5-10.1); Osmolality,Calculated 284.7 MOS/KG (273-304); Potassium 4.9 MMOL/L (3.5-5.1)
[2022-04-24] MEDS: amLODIPine 10 MG TABLET PO SCH (09:37)
[2022-04-24] MEDS: PANTOPRAZOLE 40 MG TABLET PO SCH (09:37)
[2022-04-24] MEDS: ISOSORBIDE MONONITRATE 60 MG TABLET PO SCH (09:37)
[2022-04-24] MEDS: carvediloL 6.25 MG TABLET PO SCH ×2 (09:37→20:15)
[2022-04-24] MEDS ORDERED: TISSUE ADHESIVE 1 EACH APPLICATOR TOP ONE (14:29)
[2022-04-25 05:15] LABS: Basophils % 0.7 % (0.0-0.8); Eosinophils # 0.5 10*3/uL (0.0-0.87); Eosinophils % 10.8 % (0.00-10.9); Hemoglobin 8.2 GM/DL (12.0-16.0); Immature Granulocytes % 0.2 %; Immature Granulocytes Absolute 0.01 #; Lymphocytes # 0.8 10*3/uL (1.4-4.0); Lymphocytes % 17.6 % (21.3-54.2); Mean Corpuscular HGB Conc 31.5 GM/DL (32-36); Mean Corpuscular Volume 83.6 FL (87-102); Mean Platelet Volume 9.6 FL (9.6-12.0); Monocytes # 0.4 10*3/uL (0.11-0.8); Monocytes % 8.5 % (1.7-12.7); Neutrophils % 62.2 % (38.7-73.9); Platelet Count 184 T/CUMM (130-400); Red Blood Count 3.11 MC/CUMM (3.8-5.5); White Blood Count 4.6 T/CUMM (4-12)
[2022-04-25 05:36] LABS: Calcium 9.7 MG/DL (8.5-10.1); Potassium 4.8 MMOL/L (3.5-5.1)
[2022-04-25] MEDS: carvediloL 6.25 MG TABLET PO SCH (12:31)
[2022-04-25] MEDS: PANTOPRAZOLE 40 MG TABLET PO SCH (12:42)
[2022-04-25] MEDS: amLODIPine 10 MG TABLET PO SCH (12:42)
[2022-04-25] MEDS: ISOSORBIDE MONONITRATE 60 MG TABLET PO SCH (12:43)
[2022-04-25 14:04] VITALS: BP 162/82
== END 2022-04-25 15:20 | disposition home or self-care (01) | DRG 291 ==
LOC: EDUNIT# → EDBD → N.ED 22:25 → SUATTDRO 04-22 01:57 → N.EDINP 04-22 01:57 → N.TELEN 04-22 02:48
PROVIDERS: ADMIT Emergency Medicine; ATTEND Family Medicine

== ENCOUNTER 2022-05-19 03:52 | Observation (INO) ==
[2022-05-19] MEDS ORDERED: MORPHINE 2 MG/1 ML SYRINGE IV STA (04:23)
[2022-05-19] MEDS ORDERED: ASPIRIN 325 MG TABLET PO STA (04:23)
[2022-05-19] MEDS ORDERED: NITROGLYCERIN 2% OINT 1 INCH/GM PACK TOP STA (04:23)
[2022-05-19] MEDS ORDERED: ONDANSETRON 4 MG/2 ML VIAL IV STA (04:23)
[2022-05-19 04:36] LABS: Basophils % 0.4 % (0.0-0.8); Eosinophils # 0.3 10*3/uL (0.0-0.87); Eosinophils % 3.9 % (0.00-10.9); Hemoglobin 6.8 GM/DL (12.0-16.0); Immature Granulocytes % 0.6 %; Immature Granulocytes Absolute 0.04 #; Lymphocytes # 0.8 10*3/uL (1.4-4.0); Lymphocytes % 10.8 % (21.3-54.2); Mean Corpuscular HGB Conc 30.9 GM/DL (32-36); Mean Platelet Volume 10.6 FL (9.6-12.0); Monocytes # 0.7 10*3/uL (0.11-0.8); Monocytes % 9.3 % (1.7-12.7); Platelet Count 223 T/CUMM (130-400); Red Blood Count 2.65 MC/CUMM (3.8-5.5); Red Cell Distribution Width 19.7 % (9.3-17.3); White Blood Count 7.2 T/CUMM (4-12)
[2022-05-19 04:48] LABS: Albumin 3.1 G/DL (3.4-5.0); Bilirubin,Total 0.9 MG/DL (0.20-1.00); Calcium 10.2 MG/DL (8.5-10.1); Osmolality,Calculated 283.5 MOS/KG (273-304); Potassium 4.2 MMOL/L (3.5-5.1); Total Protein 7.7 G/DL (6.4-8.2)
[2022-05-19] MEDS ORDERED: LABETALOL 20 MG/4 ML SYRINGE IV STA (05:17)
[2022-05-19] MEDS ORDERED: GLUCAGON 1 MG VIAL IM PRN ×2 (05:49→17:20)
[2022-05-19] MEDS ORDERED: hydrALAZINE 20 MG/1 ML VIAL IV PRN (05:49)
[2022-05-19] MEDS ORDERED: ONDANSETRON 4 MG/2 ML VIAL IV PRN (05:49)
[2022-05-19] MEDS ORDERED: DEXTROSE 10% 250 ML BAG IV PRN ×2 (05:49→17:35)
[2022-05-19] MEDS ORDERED: ACETAMINOPHEN 325 MG TABLET PO PRN (05:49)
[2022-05-19] MEDS ORDERED: SODIUM CHLORIDE 0.9% 1,000 ML IV PRN (05:51)
[2022-05-19 08:33] LABS: INR 1.1; PT Patient Result 11.9 SECS (10.1-12.1)
[2022-05-19] MEDS ORDERED: PANTOPRAZOLE 40 MG TABLET PO SCH (09:00)
[2022-05-19] MEDS: MORPHINE 2 MG/1 ML SYRINGE IV PRN ×2 (09:37→19:30)
[2022-05-19] MEDS: PANTOPRAZOLE 40 MG VIAL IV SCH ×2 (09:46→20:32)
[2022-05-19 13:54] LABS: Hematocrit 23.9 VOL% (35.7-47.0); Hemoglobin 7.4 GM/DL (12.0-16.0)
[2022-05-19] MEDS ORDERED: ALBUTEROL/IPRATROPIUM 3 ML NEB RESP TX PRN (17:21)
[2022-05-19] MEDS ORDERED: ALBUTEROL 2.5 MG/3 ML NEB RESP TX PRN (17:34)
[2022-05-19] MEDS ORDERED: POLYETHYLENE GLYCOL POWDER 17 GM PACK PO PRN (17:34)
[2022-05-19] MEDS: minoxidiL 2.5 MG TABLET PO SCH (20:30)
[2022-05-19] MEDS: carvediloL 6.25 MG TABLET PO SCH (20:31)
[2022-05-19] MEDS: cloNIDine 0.1 MG TABLET PO SCH (20:31)
[2022-05-20 05:37] LABS: Basophils # 0.1 10*3/uL (0.0-0.2); Basophils % 0.9 % (0.0-0.8); Eosinophils # 0.5 10*3/uL (0.0-0.87); Hemoglobin 7.7 GM/DL (12.0-16.0); Immature Granulocytes % 0.3 %; Immature Granulocytes Absolute 0.02 #; Lymphocytes # 0.9 10*3/uL (1.4-4.0); Lymphocytes % 15.9 % (21.3-54.2); Mean Corpuscular HGB Conc 30.8 GM/DL (32-36); Mean Platelet Volume 10.6 FL (9.6-12.0); Monocytes # 0.5 10*3/uL (0.11-0.8); Monocytes % 9.2 % (1.7-12.7); Neutrophils % 65.7 % (38.7-73.9); Platelet Count 211 T/CUMM (130-400); Red Blood Count 2.94 MC/CUMM (3.8-5.5); Red Cell Distribution Width 18.7 % (9.3-17.3); White Blood Count 5.7 T/CUMM (4-12)
[2022-05-20 05:53] LABS: Calcium 10.4 MG/DL (8.5-10.1); Potassium 4.6 MMOL/L (3.5-5.1)
[2022-05-20] MEDS ORDERED: ISOSORBIDE MONONITRATE 60 MG TABLET PO SCH (09:00)
[2022-05-20] MEDS ORDERED: amLODIPine 10 MG TABLET PO SCH (09:00)
[2022-05-20] MEDS: cloNIDine 0.1 MG TABLET PO SCH (10:09)
[2022-05-20] MEDS: carvediloL 6.25 MG TABLET PO SCH (10:10)
[2022-05-20] MEDS: minoxidiL 2.5 MG TABLET PO SCH (10:10)
[2022-05-20] MEDS: NON-FORMULARY MEDICATION (Sucroferric Oxyhydroxide [Velphoro] 500 mg tablet,chewable) PO SCH ×2 (10:13→12:42)
[2022-05-20] MEDS: PANTOPRAZOLE 40 MG VIAL IV SCH (10:51)
[2022-05-20 12:16] VITALS: BP 134/64
== END 2022-05-20 17:30 | disposition home or self-care (01) ==
LOC: EDUNIT# → EDBD → N.ED 03:52 → N.EDINP 03:52 → N.TELEN 19:16
PROVIDERS: ADMIT Family Medicine; ATTEND Family Medicine

== ENCOUNTER 2022-06-03 01:11 | Observation (INO) ==
[2022-06-03 01:46] LABS: Basophils % 0.4 % (0.0-0.8); Eosinophils # 0.6 10*3/uL (0.0-0.87); Eosinophils % 8.6 % (0.00-10.9); Hematocrit 24.6 VOL% (35.7-47.0); Hemoglobin 7.5 GM/DL (12.0-16.0); Immature Granulocytes % 0.3 %; Immature Granulocytes Absolute 0.02 #; Lymphocytes # 0.9 10*3/uL (1.4-4.0); Lymphocytes % 13.8 % (21.3-54.2); Mean Corpuscular HGB Conc 30.5 GM/DL (32-36); Mean Corpuscular Volume 84.2 FL (87-102); Mean Platelet Volume 9.7 FL (9.6-12.0); Monocytes # 0.6 10*3/uL (0.11-0.8); Monocytes % 9.3 % (1.7-12.7); Neutrophils % 67.6 % (38.7-73.9); Platelet Count 245 T/CUMM (130-400); Red Blood Count 2.92 MC/CUMM (3.8-5.5); Red Cell Distribution Width 19.1 % (9.3-17.3); White Blood Count 6.7 T/CUMM (4-12)
[2022-06-03 02:18] LABS: Calcium 10.3 MG/DL (8.5-10.1); Osmolality,Calculated 281.8 MOS/KG (273-304); Potassium 4.2 MMOL/L (3.5-5.1)
[2022-06-03] MEDS ORDERED: NITROGLYCERIN 2% OINT 1 INCH/GM PACK TOP STA (03:14)
[2022-06-03] MEDS ORDERED: ONDANSETRON 4 MG/2 ML VIAL IV ONE (03:44)
[2022-06-03] MEDS ORDERED: hydrALAZINE 20 MG/1 ML VIAL IV STA (03:44)
[2022-06-03] MEDS ORDERED: MORPHINE 2 MG/1 ML SYRINGE IV STA (03:44)
[2022-06-03] MEDS ORDERED: ACETAMINOPHEN 325 MG TABLET PO PRN (04:46)
[2022-06-03] MEDS ORDERED: hydrALAZINE 20 MG/1 ML VIAL IV PRN (04:46)
[2022-06-03] MEDS ORDERED: GLUCAGON 1 MG VIAL IM PRN (04:46)
[2022-06-03] MEDS ORDERED: ONDANSETRON 4 MG/2 ML VIAL IV PRN (04:46)
[2022-06-03] MEDS ORDERED: ALBUTEROL/IPRATROPIUM 3 ML NEB RESP TX PRN (05:00)
[2022-06-03] MEDS ORDERED: DEXTROSE 10% 250 ML BAG IV PRN (05:28)
[2022-06-03] MEDS ORDERED: POLYETHYLENE GLYCOL POWDER 17 GM PACK PO PRN (05:30)
[2022-06-03] MEDS ORDERED: HEPARIN 5,000 UNIT/1 ML VIAL SUBCUT SCH (09:00)
[2022-06-03] MEDS: amLODIPine 10 MG TABLET PO SCH (09:35)
[2022-06-03] MEDS: PANTOPRAZOLE 40 MG TABLET PO SCH (09:36)
[2022-06-03] MEDS: minoxidiL 2.5 MG TABLET PO SCH ×2 (09:36→21:33)
[2022-06-03] MEDS: NON-FORMULARY MEDICATION (Sucroferric Oxyhydroxide [Velphoro] 500 mg tablet,chewable) PO SCH ×3 (09:36→16:56)
[2022-06-03] MEDS: ISOSORBIDE MONONITRATE 60 MG TABLET PO SCH ×2 (09:36→21:33)
[2022-06-03] MEDS: carvediloL 6.25 MG TABLET PO SCH ×2 (09:36→21:33)
[2022-06-03] MEDS: HYDROmorphone 1 MG/1 ML SYRINGE IV PRN ×3 (12:50→21:39)
[2022-06-03 14:36] LABS: Hepatitis B Core IgM Quant 0.64 Index; Hepatitis B Surface Ag Quant < 0.10 Index; Hepatitis B Surface Ag Result Non-Reactive (NonReactive); Hepatitis C Virus Ab Quant 0.15 Index; Hepatitis C Virus Ab Result Non-Reactive (NonReactive)
[2022-06-04] MEDS: HYDROmorphone 1 MG/1 ML SYRINGE IV PRN ×3 (05:04→21:36)
[2022-06-04 05:42] LABS: Basophils # 0.1 10*3/uL (0.0-0.2); Basophils % 0.8 % (0.0-0.8); Eosinophils # 0.5 10*3/uL (0.0-0.87); Eosinophils % 7.7 % (0.00-10.9); Hematocrit 22.3 VOL% (35.7-47.0); Hemoglobin 6.7 GM/DL (12.0-16.0); Immature Granulocytes % 0.3 %; Immature Granulocytes Absolute 0.02 #; Lymphocytes # 0.8 10*3/uL (1.4-4.0); Lymphocytes % 12.9 % (21.3-54.2); Mean Corpuscular Volume 85.8 FL (87-102); Mean Platelet Volume 10.2 FL (9.6-12.0); Monocytes # 0.4 10*3/uL (0.11-0.8); Monocytes % 6.9 % (1.7-12.7); Neutrophils % 71.4 % (38.7-73.9); Platelet Count 203 T/CUMM (130-400); Red Cell Distribution Width 18.7 % (9.3-17.3); White Blood Count 6.2 T/CUMM (4-12)
[2022-06-04 06:05] LABS: Calcium 10.4 MG/DL (8.5-10.1); Osmolality,Calculated 275.8 MOS/KG (273-304); Potassium 4.3 MMOL/L (3.5-5.1)
[2022-06-04] MEDS ORDERED: SODIUM CHLORIDE 0.9% 1,000 ML IV PRN (07:44)
[2022-06-04] MEDS: NON-FORMULARY MEDICATION (Sucroferric Oxyhydroxide [Velphoro] 500 mg tablet,chewable) PO SCH ×3 (09:38→16:17)
[2022-06-04] MEDS: carvediloL 6.25 MG TABLET PO SCH ×2 (09:42→21:37)
[2022-06-04] MEDS: ISOSORBIDE MONONITRATE 60 MG TABLET PO SCH ×2 (09:42→21:36)
[2022-06-04] MEDS: PANTOPRAZOLE 40 MG TABLET PO SCH (09:42)
[2022-06-04] MEDS: amLODIPine 10 MG TABLET PO SCH (09:42)
[2022-06-04] MEDS: minoxidiL 2.5 MG TABLET PO SCH ×2 (09:42→21:37)
[2022-06-04 10:46] LABS: Hemoglobin 6.7 GM/DL (12.0-16.0)
[2022-06-04 20:34] LABS: Hematocrit 25.1 VOL% (35.7-47.0); Hemoglobin 7.7 GM/DL (12.0-16.0)
[2022-06-05] MEDS: HYDROmorphone 1 MG/1 ML SYRINGE IV PRN ×4 (02:04→20:35)
[2022-06-05 05:09] LABS: Basophils % 0.7 % (0.0-0.8); Eosinophils # 0.5 10*3/uL (0.0-0.87); Hematocrit 25.6 VOL% (35.7-47.0); Hemoglobin 7.8 GM/DL (12.0-16.0); Immature Granulocytes % 0.2 %; Immature Granulocytes Absolute 0.01 #; Lymphocytes # 0.7 10*3/uL (1.4-4.0); Lymphocytes % 12.5 % (21.3-54.2); Mean Corpuscular HGB Conc 30.5 GM/DL (32-36); Mean Corpuscular Volume 84.8 FL (87-102); Mean Platelet Volume 9.9 FL (9.6-12.0); Monocytes # 0.5 10*3/uL (0.11-0.8); Neutrophils % 68.6 % (38.7-73.9); Platelet Count 196 T/CUMM (130-400); Red Blood Count 3.02 MC/CUMM (3.8-5.5); White Blood Count 5.8 T/CUMM (4-12)
[2022-06-05 05:25] LABS: Calcium 9.3 MG/DL (8.5-10.1); Potassium 4.8 MMOL/L (3.5-5.1)
[2022-06-05] MEDS: NON-FORMULARY MEDICATION (Sucroferric Oxyhydroxide [Velphoro] 500 mg tablet,chewable) PO SCH ×3 (08:54→17:08)
[2022-06-05] MEDS: carvediloL 6.25 MG TABLET PO SCH ×2 (09:24→20:35)
[2022-06-05] MEDS: ISOSORBIDE MONONITRATE 60 MG TABLET PO SCH ×2 (09:25→20:34)
[2022-06-05] MEDS: minoxidiL 2.5 MG TABLET PO SCH ×2 (09:25→20:35)
[2022-06-05] MEDS: amLODIPine 10 MG TABLET PO SCH (09:25)
[2022-06-05] MEDS: PANTOPRAZOLE 40 MG TABLET PO SCH (09:25)
[2022-06-06] MEDS: HYDROmorphone 1 MG/1 ML SYRINGE IV PRN ×4 (01:17→17:19)
[2022-06-06 08:24] LABS: Basophils % 0.7 % (0.0-0.8); Eosinophils # 0.4 10*3/uL (0.0-0.87); Hematocrit 24.8 VOL% (35.7-47.0); Hemoglobin 7.9 GM/DL (12.0-16.0); Immature Granulocytes % 0.4 %; Immature Granulocytes Absolute 0.02 #; Lymphocytes # 0.7 10*3/uL (1.4-4.0); Lymphocytes % 13.3 % (21.3-54.2); Mean Corpuscular HGB Conc 31.9 GM/DL (32-36); Mean Corpuscular Volume 82.9 FL (87-102); Mean Platelet Volume 11.2 FL (9.6-12.0); Monocytes # 0.5 10*3/uL (0.11-0.8); Monocytes % 9.9 % (1.7-12.7); Neutrophils % 67.7 % (38.7-73.9); Platelet Count 222 T/CUMM (130-400); Red Blood Count 2.99 MC/CUMM (3.8-5.5); White Blood Count 5.5 T/CUMM (4-12)
[2022-06-06] MEDS: ISOSORBIDE MONONITRATE 60 MG TABLET PO SCH (12:38)
[2022-06-06] MEDS: PANTOPRAZOLE 40 MG TABLET PO SCH (12:38)
[2022-06-06] MEDS: minoxidiL 2.5 MG TABLET PO SCH (12:38)
[2022-06-06] MEDS: amLODIPine 10 MG TABLET PO SCH (12:38)
[2022-06-06] MEDS: carvediloL 6.25 MG TABLET PO SCH (12:38)
[2022-06-06] MEDS: NON-FORMULARY MEDICATION (Sucroferric Oxyhydroxide [Velphoro] 500 mg tablet,chewable) PO SCH ×2 (12:39→17:40)
[2022-06-06 16:37] VITALS: BP 123/50
== END 2022-06-06 19:44 | disposition home or self-care (01) ==
LOC: EDUNIT# → N.ED 01:11 → INTOOBSV 04:46 → N.TELES 04:46 → SUATTDRO 04:46 → N.TELES 06:25
PROVIDERS: ADMIT Family Medicine; ATTEND Hospitalist

== ENCOUNTER 2022-06-19 11:45 | Observation (INO) ==
[2022-06-19] MEDS ORDERED: HYDROmorphone 1 MG/1 ML SYRINGE IV STA (13:11)
[2022-06-19] MEDS ORDERED: ASPIRIN 325 MG TABLET PO STA (13:11)
[2022-06-19] MEDS ORDERED: ONDANSETRON 4 MG/2 ML VIAL IV STA (13:11)
[2022-06-19 13:29] LABS: Basophils # 0.1 10*3/uL (0.0-0.2); Basophils % 0.7 % (0.0-0.8); Eosinophils # 0.4 10*3/uL (0.0-0.87); Hemoglobin 7.1 GM/DL (12.0-16.0); Immature Granulocytes % 1.2 %; Immature Granulocytes Absolute 0.08 #; Lymphocytes # 0.9 10*3/uL (1.4-4.0); Lymphocytes % 12.7 % (21.3-54.2); Mean Corpuscular HGB Conc 30.9 GM/DL (32-36); Mean Corpuscular Volume 82.4 FL (87-102); Mean Platelet Volume 10.2 FL (9.6-12.0); Monocytes # 0.6 10*3/uL (0.11-0.8); Monocytes % 8.2 % (1.7-12.7); Neutrophils % 71.2 % (38.7-73.9); Platelet Count 172 T/CUMM (130-400); Red Blood Count 2.79 MC/CUMM (3.8-5.5); Red Cell Distribution Width 17.4 % (9.3-17.3); White Blood Count 6.8 T/CUMM (4-12)
[2022-06-19 13:43] LABS: Albumin 2.9 G/DL (3.4-5.0); Bilirubin,Total 0.8 MG/DL (0.20-1.00); Calcium 9.9 MG/DL (8.5-10.1); Osmolality,Calculated 282.1 MOS/KG (273-304); Potassium 4.5 MMOL/L (3.5-5.1); Total Protein 7.8 G/DL (6.4-8.2)
[2022-06-19] MEDS ORDERED: ACETAMINOPHEN 325 MG TABLET PO PRN (15:21)
[2022-06-19] MEDS ORDERED: ONDANSETRON 4 MG/2 ML VIAL IV PRN (15:21)
[2022-06-19] MEDS ORDERED: ALBUTEROL/IPRATROPIUM 3 ML NEB RESP TX PRN (15:26)
[2022-06-19] MEDS ORDERED: hydrALAZINE 20 MG/1 ML VIAL IV PRN (15:26)
[2022-06-19] MEDS ORDERED: POLYETHYLENE GLYCOL POWDER 17 GM PACK PO PRN (15:33)
[2022-06-19] MEDS ORDERED: ALBUTEROL 2.5 MG/3 ML NEB RESP TX PRN (15:33)
[2022-06-19] MEDS ORDERED: KETOROLAC 30 MG/1 ML VIAL IV PRN ×2 (16:01→16:06)
[2022-06-19] MEDS: NON-FORMULARY MEDICATION (Sucroferric Oxyhydroxide [Velphoro] 500 mg tablet,chewable) PO SCH (17:53)
[2022-06-19] MEDS: carvediloL 6.25 MG TABLET PO SCH (17:54)
[2022-06-19] MEDS: minoxidiL 2.5 MG TABLET PO SCH (20:24)
[2022-06-19] MEDS: ISOSORBIDE MONONITRATE 60 MG TABLET PO SCH (20:24)
[2022-06-19] MEDS: PANTOPRAZOLE 40 MG TABLET PO SCH (20:24)
[2022-06-19] MEDS: HEPARIN 5,000 UNIT/1 ML VIAL SUBCUT SCH (20:28)
[2022-06-19] MEDS: MORPHINE 2 MG/1 ML SYRINGE IV PRN (20:28)
[2022-06-20] MEDS: MORPHINE 2 MG/1 ML SYRINGE IV PRN ×3 (00:30→09:43)
[2022-06-20 05:17] LABS: Basophils % 0.2 % (0.0-0.8); Eosinophils # 0.4 10*3/uL (0.0-0.87); Eosinophils % 3.7 % (0.00-10.9); Hemoglobin 6.5 GM/DL (12.0-16.0); Immature Granulocytes % 0.5 %; Immature Granulocytes Absolute 0.05 #; Lymphocytes # 0.7 10*3/uL (1.4-4.0); Lymphocytes % 7.1 % (21.3-54.2); Mean Corpuscular Volume 82.7 FL (87-102); Monocytes # 0.5 10*3/uL (0.11-0.8); Monocytes % 5.4 % (1.7-12.7); Neutrophils % 83.1 % (38.7-73.9); Platelet Count 175 T/CUMM (130-400); Red Blood Count 2.54 MC/CUMM (3.8-5.5); Red Cell Distribution Width 17.3 % (9.3-17.3); White Blood Count 9.6 T/CUMM (4-12)
[2022-06-20 05:37] LABS: Alanine Aminotransferase < 9 U/L (13-56); Albumin 2.7 G/DL (3.4-5.0); Alkaline Phosphatase 185 U/L (45-117); Aspartate Amino Transferase 13 U/L (0-37); Blood Urea Nitrogen 57 MG/DL (7-18); Calcium 9.9 MG/DL (8.5-10.1); Carbon Dioxide 25 MMOL/L (21-32); Chloride 98 MMOL/L (98-107); Glucose 82 MG/DL (74-106); Osmolality,Calculated 282.2 MOS/KG (273-304); Sodium 134 MMOL/L (136-145); Total Protein 7.6 G/DL (6.4-8.2)
[2022-06-20] MEDS ORDERED: SODIUM CHLORIDE 0.9% 1,000 ML IV PRN (07:40)
[2022-06-20] MEDS: PANTOPRAZOLE 40 MG TABLET PO SCH (08:59)
[2022-06-20] MEDS ORDERED: amLODIPine 10 MG TABLET PO SCH (09:00)
[2022-06-20] MEDS: HEPARIN 5,000 UNIT/1 ML VIAL SUBCUT SCH (09:00)
[2022-06-20] MEDS: NON-FORMULARY MEDICATION (Sucroferric Oxyhydroxide [Velphoro] 500 mg tablet,chewable) PO SCH ×3 (09:19→16:44)
[2022-06-20] MEDS: carvediloL 6.25 MG TABLET PO SCH ×2 (09:19→16:44)
[2022-06-20] MEDS: minoxidiL 2.5 MG TABLET PO SCH (09:22)
[2022-06-20] MEDS: ISOSORBIDE MONONITRATE 60 MG TABLET PO SCH (09:22)
[2022-06-20 15:45] VITALS: BP 162/80
== END 2022-06-20 16:45 | disposition home or self-care (01) ==
LOC: N.ED 11:45 → N.EDINP 11:45 → SUATTDRO 15:21 → N.3E 16:54
PROVIDERS: ADMIT Internal Medicine; ATTEND Internal Medicine

== ENCOUNTER 2022-08-14 02:04 | Inpatient (IN) ==
[2022-08-14] MEDS ORDERED: MORPHINE 2 MG/1 ML SYRINGE IV STA (02:23)
[2022-08-14] MEDS ORDERED: NITROGLYCERIN 2% OINT 1 INCH/GM PACK TOP STA (02:23)
[2022-08-14] MEDS ORDERED: hydrALAZINE 20 MG/1 ML VIAL IV STA (02:23)
[2022-08-14] MEDS ORDERED: ONDANSETRON 4 MG/2 ML VIAL IV STA (02:23)
[2022-08-14] MEDS ORDERED: ASPIRIN EC 325 MG TABLET PO STA (02:28)
[2022-08-14 02:44] LABS: Basophils % 0.5 % (0.0-0.8); Eosinophils # 0.5 10*3/uL (0.0-0.87); Eosinophils % 6.2 % (0.00-10.9); Immature Granulocytes % 0.5 %; Immature Granulocytes Absolute 0.04 #; Lymphocytes # 1.1 10*3/uL (1.4-4.0); Lymphocytes % 14.1 % (21.3-54.2); Mean Corpuscular HGB Conc 31.8 GM/DL (32-36); Mean Corpuscular Volume 83.3 FL (87-102); Mean Platelet Volume 9.9 FL (9.6-12.0); Monocytes # 0.4 10*3/uL (0.11-0.8); Monocytes % 5.6 % (1.7-12.7); Neutrophils % 73.1 % (38.7-73.9); Platelet Count 197 T/CUMM (130-400); Red Blood Count 2.04 MC/CUMM (3.8-5.5); Red Cell Distribution Width 16.4 % (9.3-17.3); White Blood Count 7.5 T/CUMM (4-12)
[2022-08-14 02:48] LABS: Hemoglobin 5.4 GM/DL (12.0-16.0)
[2022-08-14 02:58] LABS: PT Patient Result 11.4 SECS (10.1-12.1); Partial Thromboplastin Time 27.8 SECS (23.7-32.9)
[2022-08-14 03:19] LABS: Albumin 2.6 G/DL (3.4-5.0); Bilirubin,Total 1.1 MG/DL (0.20-1.00); Calcium 9.4 MG/DL (8.5-10.1); Osmolality,Calculated 313.5 MOS/KG (273-304); Potassium 5.4 MMOL/L (3.5-5.1)
[2022-08-14] MEDS ORDERED: INSULIN REGULAR 10 UNIT, CALCIUM GLUCONATE 1,000 MG in DEXTROSE 10% 250 ML IV ONE (03:25)
[2022-08-14] MEDS ORDERED: PANTOPRAZOLE 40 MG VIAL IV ONE (03:59)
[2022-08-14] MEDS ORDERED: SODIUM CHLORIDE 0.9% 1,000 ML IV PRN (04:07)
[2022-08-14 06:30] LABS: % Iron Saturation 19.2 % (18-50); Ferritin 804.4 ng/mL (8-252)
[2022-08-14 06:33] LABS: Folate 7.42 NG/ML (5.38-24.0)
[2022-08-14] MEDS: MORPHINE 2 MG/1 ML SYRINGE IV PRN ×4 (08:25→22:38)
[2022-08-14] MEDS: hydrALAZINE 20 MG/1 ML VIAL IV PRN ×2 (13:02→16:46)
[2022-08-14] MEDS ORDERED: PROMETHAZINE INJ 12.5 MG in SODIUM CHLORIDE 0.9% 50 ML IV PRN (13:13)
[2022-08-14] MEDS ORDERED: SODIUM POLYSTYRENE SULFATE 15 GM/60 ML BOTTLE PO ONE (16:07)
[2022-08-14] MEDS: ONDANSETRON 4 MG/2 ML VIAL IV PRN ×2 (16:44→22:39)
[2022-08-14 19:21] LABS: Hematocrit 20.7 VOL% (35.7-47.0)
[2022-08-14] MEDS: PANTOPRAZOLE 40 MG VIAL IV SCH (22:37)
[2022-08-15] MEDS: hydrALAZINE 20 MG/1 ML VIAL IV PRN ×3 (01:03→18:36)
[2022-08-15] MEDS: MORPHINE 2 MG/1 ML SYRINGE IV PRN ×5 (04:05→22:40)
[2022-08-15] MEDS: ONDANSETRON 4 MG/2 ML VIAL IV PRN ×5 (04:07→22:41)
[2022-08-15 05:20] LABS: Basophils # 0.1 10*3/uL (0.0-0.2); Basophils % 0.8 % (0.0-0.8); Eosinophils # 0.3 10*3/uL (0.0-0.87); Eosinophils % 4.1 % (0.00-10.9); Hematocrit 20.6 VOL% (35.7-47.0); Hemoglobin 6.6 GM/DL (12.0-16.0); Immature Granulocytes % 0.4 %; Immature Granulocytes Absolute 0.03 #; Lymphocytes # 0.7 10*3/uL (1.4-4.0); Lymphocytes % 9.5 % (21.3-54.2); Mean Corpuscular Volume 85.5 FL (87-102); Mean Platelet Volume 10.6 FL (9.6-12.0); Monocytes # 0.3 10*3/uL (0.11-0.8); Monocytes % 4.3 % (1.7-12.7); Neutrophils % 80.9 % (38.7-73.9); Platelet Count 195 T/CUMM (130-400); Red Blood Count 2.41 MC/CUMM (3.8-5.5); Red Cell Distribution Width 15.7 % (9.3-17.3); White Blood Count 7.5 T/CUMM (4-12)
[2022-08-15 05:39] LABS: Albumin 2.5 G/DL (3.4-5.0); Calcium 9.6 MG/DL (8.5-10.1); Osmolality,Calculated 300.4 MOS/KG (273-304); Potassium 4.5 MMOL/L (3.5-5.1); Total Protein 7.6 G/DL (6.4-8.2)
[2022-08-15] MEDS ORDERED: SODIUM CHLORIDE 0.9% 1,000 ML IV PRN (08:22)
[2022-08-15] MEDS: PANTOPRAZOLE 40 MG VIAL IV SCH ×2 (09:07→20:57)
[2022-08-15] MEDS: SODIUM CHLORIDE 0.9% 1,000 ML IV SCH (12:21)
[2022-08-15] MEDS ORDERED: LIDOCAINE 2% 5 ML VIAL ONE (12:27)
[2022-08-15] MEDS ORDERED: propofoL 200 MG/20 ML VIAL IV ONE (12:27)
[2022-08-15] MEDS ORDERED: BISACODYL 5 MG TABLET PO ONE (15:00)
[2022-08-15] MEDS ORDERED: POLYETHYLENE GLYCOL POWDER 255 GM BOTTLE PO ONE (18:00)
[2022-08-15] MEDS: minoxidiL 2.5 MG TABLET PO SCH (20:57)
[2022-08-15] MEDS: cloNIDine 0.1 MG TABLET PO SCH (20:57)
[2022-08-15] MEDS: ISOSORBIDE MONONITRATE 60 MG TABLET PO SCH (20:57)
[2022-08-15] MEDS: carvediloL 25 MG TABLET PO SCH (20:57)
[2022-08-15] MEDS: ATORVASTATIN 40 MG TABLET PO SCH (20:57)
[2022-08-16] MEDS: MORPHINE 2 MG/1 ML SYRINGE IV PRN ×5 (02:53→20:41)
[2022-08-16] MEDS: ONDANSETRON 4 MG/2 ML VIAL IV PRN ×2 (02:54→06:47)
[2022-08-16] MEDS ORDERED: POLYETHYLENE GLYCOL POWDER 255 GM BOTTLE PO ONE (05:00)
[2022-08-16 05:34] LABS: INR 1.1; PT Patient Result 11.8 SECS (10.1-12.1)
[2022-08-16 05:36] LABS: Basophils % 0.6 % (0.0-0.8); Eosinophils # 0.4 10*3/uL (0.0-0.87); Eosinophils % 7.6 % (0.00-10.9); Immature Granulocytes % 0.6 %; Immature Granulocytes Absolute 0.03 #; Lymphocytes # 0.8 10*3/uL (1.4-4.0); Lymphocytes % 15.5 % (21.3-54.2); Mean Corpuscular HGB Conc 31.7 GM/DL (32-36); Mean Corpuscular Volume 87.9 FL (87-102); Mean Platelet Volume 10.4 FL (9.6-12.0); Monocytes # 0.3 10*3/uL (0.11-0.8); Monocytes % 5.9 % (1.7-12.7); Neutrophils % 69.8 % (38.7-73.9); Platelet Count 154 T/CUMM (130-400); Red Cell Distribution Width 15.9 % (9.3-17.3); White Blood Count 5.4 T/CUMM (4-12)
[2022-08-16 05:39] LABS: Hematocrit 16.7 VOL% (35.7-47.0); Hemoglobin 5.3 GM/DL (12.0-16.0)
[2022-08-16 05:52] LABS: Alanine Aminotransferase < 9 U/L (13-56); Albumin 2.3 G/DL (3.4-5.0); Alkaline Phosphatase 134 U/L (45-117); Aspartate Amino Transferase 12 U/L (0-37); Blood Urea Nitrogen 55 MG/DL (7-18); Calcium 9.3 MG/DL (8.5-10.1); Carbon Dioxide 29 MMOL/L (21-32); Chloride 102 MMOL/L (98-107); Glucose 86 MG/DL (74-106); Osmolality,Calculated 290.5 MOS/KG (273-304); Potassium 4.3 MMOL/L (3.5-5.1); Sodium 139 MMOL/L (136-145); Total Protein 6.7 G/DL (6.4-8.2)
[2022-08-16] MEDS ORDERED: SODIUM CHLORIDE 0.9% 1,000 ML IV PRN ×2 (05:55→16:01)
[2022-08-16] MEDS: minoxidiL 2.5 MG TABLET PO SCH ×2 (09:32→20:41)
[2022-08-16] MEDS: NON-FORMULARY MEDICATION (Sucroferric Oxyhydroxide [Velphoro] 500 mg tablet,chewable) PO SCH ×3 (09:32→17:10)
[2022-08-16] MEDS: cloNIDine 0.1 MG TABLET PO SCH ×3 (09:32→20:41)
[2022-08-16] MEDS: amLODIPine 10 MG TABLET PO SCH (09:32)
[2022-08-16] MEDS: ISOSORBIDE MONONITRATE 60 MG TABLET PO SCH ×2 (09:32→20:41)
[2022-08-16] MEDS: carvediloL 25 MG TABLET PO SCH ×2 (09:32→20:41)
[2022-08-16] MEDS: PANTOPRAZOLE 40 MG VIAL IV SCH ×2 (09:33→20:41)
[2022-08-16 10:10] LABS: Bilirubin,Direct 0.26 MG/DL (0.0-0.20)
[2022-08-16] MEDS: SODIUM CHLORIDE 0.9% 1,000 ML IV SCH ×2 (12:30→13:48)
[2022-08-16] MEDS ORDERED: propofoL 200 MG/20 ML VIAL IV ONE (13:26)
[2022-08-16] MEDS ORDERED: LIDOCAINE 2% 5 ML VIAL ONE (13:26)
[2022-08-16 14:58] LABS: Hematocrit 19.7 VOL% (35.7-47.0); Hemoglobin 6.6 GM/DL (12.0-16.0)
[2022-08-16] MEDS: ATORVASTATIN 40 MG TABLET PO SCH (20:41)
[2022-08-17] MEDS: MORPHINE 2 MG/1 ML SYRINGE IV PRN ×5 (00:34→19:48)
[2022-08-17 05:01] LABS: Basophils % 0.6 % (0.0-0.8); Eosinophils # 0.5 10*3/uL (0.0-0.87); Eosinophils % 9.3 % (0.00-10.9); Hematocrit 23.1 VOL% (35.7-47.0); Hemoglobin 7.5 GM/DL (12.0-16.0); Immature Granulocytes % 0.4 %; Immature Granulocytes Absolute 0.02 #; Lymphocytes % 18.5 % (21.3-54.2); Mean Corpuscular HGB Conc 32.5 GM/DL (32-36); Mean Corpuscular Volume 87.5 FL (87-102); Mean Platelet Volume 10.4 FL (9.6-12.0); Monocytes # 0.5 10*3/uL (0.11-0.8); Monocytes % 8.6 % (1.7-12.7); Neutrophils % 62.6 % (38.7-73.9); Platelet Count 168 T/CUMM (130-400); Red Blood Count 2.64 MC/CUMM (3.8-5.5); White Blood Count 5.3 T/CUMM (4-12)
[2022-08-17 05:26] LABS: Alanine Aminotransferase < 6 U/L (13-56); Albumin 2.2 G/DL (3.4-5.0); Alkaline Phosphatase 126 U/L (45-117); Aspartate Amino Transferase 9 U/L (0-37); Blood Urea Nitrogen 49 MG/DL (7-18); Calcium 9.4 MG/DL (8.5-10.1); Carbon Dioxide 28 MMOL/L (21-32); Chloride 103 MMOL/L (98-107); Glucose 80 MG/DL (74-106); Osmolality,Calculated 286.7 MOS/KG (273-304); Potassium 4.2 MMOL/L (3.5-5.1); Sodium 138 MMOL/L (136-145); Total Protein 6.5 G/DL (6.4-8.2)
[2022-08-17] MEDS: NON-FORMULARY MEDICATION (Sucroferric Oxyhydroxide [Velphoro] 500 mg tablet,chewable) PO SCH ×3 (08:00→16:52)
[2022-08-17] MEDS: cloNIDine 0.1 MG TABLET PO SCH ×3 (09:00→21:21)
[2022-08-17] MEDS: PANTOPRAZOLE 40 MG VIAL IV SCH ×2 (09:40→21:21)
[2022-08-17] MEDS ORDERED: SODIUM CHLORIDE 0.9% 1,000 ML IV SCH (11:00)
[2022-08-17] MEDS: ONDANSETRON 4 MG/2 ML VIAL IV PRN ×2 (12:30→19:48)
[2022-08-17] MEDS: SODIUM CHLORIDE 0.9% 1,000 ML IV SCH (14:39)
[2022-08-17] MEDS: carvediloL 25 MG TABLET PO SCH ×2 (14:45→21:21)
[2022-08-17] MEDS: amLODIPine 10 MG TABLET PO SCH (14:45)
[2022-08-17] MEDS: minoxidiL 2.5 MG TABLET PO SCH ×2 (14:47→21:21)
[2022-08-17] MEDS: ISOSORBIDE MONONITRATE 60 MG TABLET PO SCH ×2 (14:48→21:21)
[2022-08-17] MEDS: ATORVASTATIN 40 MG TABLET PO SCH (21:21)
[2022-08-18] MEDS: ONDANSETRON 4 MG/2 ML VIAL IV PRN (00:11)
[2022-08-18] MEDS: MORPHINE 2 MG/1 ML SYRINGE IV PRN ×5 (00:13→20:20)
[2022-08-18 05:48] LABS: Basophils % 0.5 % (0.0-0.8); Eosinophils # 0.6 10*3/uL (0.0-0.87); Eosinophils % 9.6 % (0.00-10.9); Hematocrit 21.7 VOL% (35.7-47.0); Immature Granulocytes % 0.5 %; Immature Granulocytes Absolute 0.03 #; Lymphocytes # 0.8 10*3/uL (1.4-4.0); Lymphocytes % 13.1 % (21.3-54.2); Mean Corpuscular HGB Conc 32.3 GM/DL (32-36); Mean Corpuscular Volume 88.6 FL (87-102); Monocytes # 0.5 10*3/uL (0.11-0.8); Neutrophils % 68.3 % (38.7-73.9); Platelet Count 178 T/CUMM (130-400); Red Blood Count 2.45 MC/CUMM (3.8-5.5); White Blood Count 6.2 T/CUMM (4-12)
[2022-08-18 06:04] LABS: Alanine Aminotransferase < 9 U/L (13-56); Albumin 2.2 G/DL (3.4-5.0); Alkaline Phosphatase 134 U/L (45-117); Aspartate Amino Transferase 14 U/L (0-37); Blood Urea Nitrogen 57 MG/DL (7-18); Calcium 8.8 MG/DL (8.5-10.1); Carbon Dioxide 26 MMOL/L (21-32); Chloride 105 MMOL/L (98-107); Glucose 80 MG/DL (74-106); Osmolality,Calculated 293.4 MOS/KG (273-304); Potassium 4.6 MMOL/L (3.5-5.1); Sodium 140 MMOL/L (136-145); Total Protein 6.6 G/DL (6.4-8.2)
[2022-08-18] MEDS ORDERED: SODIUM CHLORIDE 0.9% 1,000 ML IV SCH (08:00)
[2022-08-18] MEDS: PANTOPRAZOLE 40 MG VIAL IV SCH ×2 (09:17→21:13)
[2022-08-18] MEDS: NON-FORMULARY MEDICATION (Sucroferric Oxyhydroxide [Velphoro] 500 mg tablet,chewable) PO SCH ×3 (13:12→18:16)
[2022-08-18] MEDS: cloNIDine 0.1 MG TABLET PO SCH ×3 (13:14→21:18)
[2022-08-18] MEDS: carvediloL 25 MG TABLET PO SCH ×2 (13:14→21:18)
[2022-08-18] MEDS: ISOSORBIDE MONONITRATE 60 MG TABLET PO SCH ×2 (13:14→21:18)
[2022-08-18] MEDS: minoxidiL 2.5 MG TABLET PO SCH ×3 (13:15→21:19)
[2022-08-18] MEDS: amLODIPine 10 MG TABLET PO SCH (13:15)
[2022-08-18] MEDS: ATORVASTATIN 40 MG TABLET PO SCH (21:12)
[2022-08-19] MEDS: MORPHINE 2 MG/1 ML SYRINGE IV PRN ×4 (00:19→15:22)
[2022-08-19] MEDS: ACETAMINOPHEN 325 MG TABLET PO PRN ×2 (03:04→12:50)
[2022-08-19 06:22] LABS: Basophils % 0.6 % (0.0-0.8); Eosinophils # 0.6 10*3/uL (0.0-0.87); Eosinophils % 11.3 % (0.00-10.9); Hematocrit 23.2 VOL% (35.7-47.0); Hemoglobin 7.5 GM/DL (12.0-16.0); Immature Granulocytes % 0.4 %; Immature Granulocytes Absolute 0.02 #; Lymphocytes # 0.8 10*3/uL (1.4-4.0); Lymphocytes % 14.8 % (21.3-54.2); Mean Corpuscular HGB Conc 32.3 GM/DL (32-36); Mean Corpuscular Volume 88.9 FL (87-102); Mean Platelet Volume 10.5 FL (9.6-12.0); Monocytes # 0.5 10*3/uL (0.11-0.8); Monocytes % 9.9 % (1.7-12.7); Platelet Count 185 T/CUMM (130-400); Red Blood Count 2.61 MC/CUMM (3.8-5.5); Red Cell Distribution Width 15.9 % (9.3-17.3); White Blood Count 5.1 T/CUMM (4-12)
[2022-08-19 06:53] LABS: Eosinophils 15 % (0-10); Hypochromia Slight; Lymphocytes 10 % (20-55); Microcytosis Slight; Platelet Estimate Adequate; Total Cells Counted 100
[2022-08-19 06:58] LABS: Albumin 2.4 G/DL (3.4-5.0); Bilirubin,Total 0.6 MG/DL (0.20-1.00); Calcium 9.4 MG/DL (8.5-10.1); Osmolality,Calculated 282.5 MOS/KG (273-304); Potassium 4.5 MMOL/L (3.5-5.1); Total Protein 6.9 G/DL (6.4-8.2)
[2022-08-19] MEDS: PANTOPRAZOLE 40 MG VIAL IV SCH (08:40)
[2022-08-19] MEDS: NON-FORMULARY MEDICATION (Sucroferric Oxyhydroxide [Velphoro] 500 mg tablet,chewable) PO SCH ×3 (08:42→17:32)
[2022-08-19] MEDS: cloNIDine 0.1 MG TABLET PO SCH ×2 (11:23→15:38)
[2022-08-19] MEDS: minoxidiL 2.5 MG TABLET PO SCH (11:24)
[2022-08-19] MEDS: amLODIPine 10 MG TABLET PO SCH (11:24)
[2022-08-19] MEDS: carvediloL 25 MG TABLET PO SCH (11:25)
[2022-08-19] MEDS: ISOSORBIDE MONONITRATE 60 MG TABLET PO SCH (11:25)
[2022-08-19 11:58] VITALS: BP 162/85
== END 2022-08-19 20:08 | disposition home or self-care (01) | DRG 377 ==
LOC: N.ED 02:04 → N.5E 03:52 → SUATTDRO 03:52 → N.5E 06:00
PROVIDERS: ADMIT Family Medicine; ATTEND Internal Medicine

== ENCOUNTER 2022-08-27 12:19 | Inpatient (IN) ==
[2022-08-27] MEDS ORDERED: LABETALOL 20 MG/4 ML SYRINGE IV STA (12:47)
[2022-08-27] MEDS ORDERED: ONDANSETRON 4 MG/2 ML VIAL IV STA (12:47)
[2022-08-27 12:54] LABS: Basophils % 0.7 % (0.0-0.8); Eosinophils # 0.6 10*3/uL (0.0-0.87); Eosinophils % 9.2 % (0.00-10.9); Hematocrit 24.2 VOL% (35.7-47.0); Hemoglobin 7.7 GM/DL (12.0-16.0); Immature Granulocytes % 0.3 %; Immature Granulocytes Absolute 0.02 #; Lymphocytes # 0.8 10*3/uL (1.4-4.0); Lymphocytes % 12.9 % (21.3-54.2); Mean Corpuscular HGB Conc 31.8 GM/DL (32-36); Mean Corpuscular Volume 89.6 FL (87-102); Mean Platelet Volume 10.2 FL (9.6-12.0); Monocytes # 0.5 10*3/uL (0.11-0.8); Monocytes % 8.2 % (1.7-12.7); Neutrophils % 68.7 % (38.7-73.9); Platelet Count 208 T/CUMM (130-400); Red Cell Distribution Width 15.8 % (9.3-17.3)
[2022-08-27 13:10] LABS: Albumin 2.9 G/DL (3.4-5.0); Bilirubin,Total 0.9 MG/DL (0.20-1.00); Osmolality,Calculated 282.7 MOS/KG (273-304); Potassium 4.8 MMOL/L (3.5-5.1); Total Protein 7.4 G/DL (6.4-8.2)
[2022-08-27] MEDS ORDERED: hydrALAZINE 20 MG/1 ML VIAL IV STA (14:30)
[2022-08-27] MEDS ORDERED: SODIUM CHLORIDE 0.9% 1,000 ML IV PRN (14:56)
[2022-08-27] MEDS ORDERED: POLYETHYLENE GLYCOL POWDER 17 GM PACK PO PRN (15:25)
[2022-08-27] MEDS ORDERED: FUROSEMIDE INJ 200 MG in SODIUM CHLORIDE 0.9% 50 ML IV ONE (16:03)
[2022-08-27] MEDS ORDERED: EPOETIN ALFA-EPBX 4,000 UNIT/ML VIAL IV PRN (16:03)
[2022-08-27] MEDS: hydrALAZINE 20 MG/1 ML VIAL IV PRN ×2 (16:13→21:28)
[2022-08-27] MEDS: amLODIPine 10 MG TABLET PO SCH (17:16)
[2022-08-27] MEDS: PANTOPRAZOLE 40 MG VIAL IV SCH ×2 (17:16→22:17)
[2022-08-27] MEDS: NON-FORMULARY MEDICATION (Sucroferric Oxyhydroxide [Velphoro] 500 mg tablet,chewable) PO SCH (17:17)
[2022-08-27] MEDS: ONDANSETRON 4 MG/2 ML VIAL IV PRN ×2 (18:00→22:17)
[2022-08-27] MEDS: ALBUTEROL/IPRATROPIUM 3 ML NEB RESP TX SCH (19:09)
[2022-08-27 20:08] LABS: Hematocrit 26.1 VOL% (35.7-47.0); Hemoglobin 8.2 GM/DL (12.0-16.0)
[2022-08-27] MEDS ORDERED: ACETAMINOPHEN 325 MG TABLET PO PRN (20:19)
[2022-08-27] MEDS: MORPHINE 2 MG/1 ML SYRINGE IV PRN (20:32)
[2022-08-27] MEDS: PROMETHAZINE 25 MG/1 ML VIAL IM PRN (20:33)
[2022-08-27] MEDS: cloNIDine 0.1 MG TABLET PO SCH (22:25)
[2022-08-27] MEDS: ISOSORBIDE MONONITRATE 60 MG TABLET PO SCH (22:25)
[2022-08-27] MEDS: carvediloL 25 MG TABLET PO SCH (22:25)
[2022-08-27] MEDS: ATORVASTATIN 40 MG TABLET PO SCH (22:25)
[2022-08-27] MEDS: minoxidiL 2.5 MG TABLET PO SCH (22:25)
[2022-08-28] MEDS: ALBUTEROL/IPRATROPIUM 3 ML NEB RESP TX SCH ×4 (00:38→19:00)
[2022-08-28] MEDS: MORPHINE 2 MG/1 ML SYRINGE IV PRN ×4 (00:47→17:12)
[2022-08-28] MEDS: ONDANSETRON 4 MG/2 ML VIAL IV PRN ×4 (01:55→17:13)
[2022-08-28] MEDS: hydrALAZINE 20 MG/1 ML VIAL IV PRN ×2 (03:00→08:15)
[2022-08-28] MEDS: PROMETHAZINE 25 MG/1 ML VIAL IM PRN (03:03)
[2022-08-28] MEDS ORDERED: LABETALOL 20 MG/4 ML SYRINGE IV ONE (04:35)
[2022-08-28 05:28] LABS: Basophils % 0.3 % (0.0-0.8); Eosinophils % 0.1 % (0.00-10.9); Hematocrit 26.7 VOL% (35.7-47.0); Hemoglobin 8.4 GM/DL (12.0-16.0); Hemoglobin 8.5 GM/DL (12.0-16.0); Immature Granulocytes % 0.6 %; Immature Granulocytes Absolute 0.05 #; Lymphocytes # 0.5 10*3/uL (1.4-4.0); Lymphocytes % 5.4 % (21.3-54.2); Mean Corpuscular HGB Conc 31.5 GM/DL (32-36); Mean Corpuscular Volume 89.3 FL (87-102); Mean Platelet Volume 10.6 FL (9.6-12.0); Monocytes # 0.2 10*3/uL (0.11-0.8); Monocytes % 2.2 % (1.7-12.7); Neutrophils % 91.4 % (38.7-73.9); Platelet Count 236 T/CUMM (130-400); Red Blood Count 2.99 MC/CUMM (3.8-5.5); Red Cell Distribution Width 15.8 % (9.3-17.3); White Blood Count 8.7 T/CUMM (4-12)
[2022-08-28 06:04] LABS: Eosinophils 1 % (0-10); Hypochromia Slight; Lymphocytes 3 % (20-55); Microcytosis Slight; Platelet Estimate Adequate; Total Cells Counted 100
[2022-08-28 06:26] LABS: Albumin 2.9 G/DL (3.4-5.0); Bilirubin,Total 0.9 MG/DL (0.20-1.00); Calcium 10.1 MG/DL (8.5-10.1); Potassium 5.4 MMOL/L (3.5-5.1); Thyroid Stimulating Hormone 1.08 uIU/ml (0.358-3.74); Total Protein 8.6 G/DL (6.4-8.2)
[2022-08-28] MEDS: minoxidiL 2.5 MG TABLET PO SCH ×2 (10:57→21:23)
[2022-08-28] MEDS: NON-FORMULARY MEDICATION (Sucroferric Oxyhydroxide [Velphoro] 500 mg tablet,chewable) PO SCH ×3 (10:57→17:13)
[2022-08-28] MEDS: cloNIDine 0.1 MG TABLET PO SCH ×3 (10:57→21:23)
[2022-08-28] MEDS: amLODIPine 10 MG TABLET PO SCH ×2 (10:57→11:26)
[2022-08-28] MEDS: ISOSORBIDE MONONITRATE 60 MG TABLET PO SCH ×2 (10:57→21:23)
[2022-08-28] MEDS: carvediloL 25 MG TABLET PO SCH ×2 (10:57→21:23)
[2022-08-28] MEDS: PANTOPRAZOLE 40 MG VIAL IV SCH ×2 (10:58→21:23)
[2022-08-28 12:35] LABS: Hematocrit 26.1 VOL% (35.7-47.0); Hemoglobin 8.2 GM/DL (12.0-16.0)
[2022-08-28 17:48] LABS: Barbiturates Screen,Urine Negative (Negative); Benzodiazepines Screen,Urine Negative (Negative); Cannabinoid Screen,Urine Negative (Negative); Opiate Screen,Urine Positive (Negative); Phencyclidine Screen,Urine Negative (Negative)
[2022-08-28 20:34] LABS: Hematocrit 23.2 VOL% (35.7-47.0); Hemoglobin 7.2 GM/DL (12.0-16.0)
[2022-08-28] MEDS: AMITRIPTYLINE 25 MG TABLET PO SCH (21:23)
[2022-08-28] MEDS: ATORVASTATIN 40 MG TABLET PO SCH (21:24)
[2022-08-28 21:47] LABS: Neutrophils,Peritoneal Fluid 8 %; RBC,Peritoneal Fluid 1499 T/CUMM
[2022-08-29] MEDS: ALBUTEROL/IPRATROPIUM 3 ML NEB RESP TX SCH ×4 (00:35→18:54)
[2022-08-29] MEDS: MORPHINE 2 MG/1 ML SYRINGE IV PRN ×3 (04:02→21:20)
[2022-08-29 05:05] LABS: Basophils % 0.5 % (0.0-0.8); Eosinophils # 0.4 10*3/uL (0.0-0.87); Hemoglobin 6.9 GM/DL (12.0-16.0); Immature Granulocytes % 0.4 %; Immature Granulocytes Absolute 0.02 #; Lymphocytes % 18.2 % (21.3-54.2); Mean Corpuscular HGB Conc 31.4 GM/DL (32-36); Mean Corpuscular Volume 90.2 FL (87-102); Mean Platelet Volume 10.1 FL (9.6-12.0); Monocytes # 0.5 10*3/uL (0.11-0.8); Monocytes % 9.3 % (1.7-12.7); NRBC # 0.02 10*3/uL; Neutrophils % 63.6 % (38.7-73.9); Platelet Count 188 T/CUMM (130-400); Red Blood Count 2.44 MC/CUMM (3.8-5.5); Red Cell Distribution Width 15.8 % (9.3-17.3); White Blood Count 5.5 T/CUMM (4-12)
[2022-08-29 05:31] LABS: Alanine Aminotransferase < 9 U/L (13-56); Albumin 2.5 G/DL (3.4-5.0); Alkaline Phosphatase 162 U/L (45-117); Aspartate Amino Transferase 10 U/L (0-37); Blood Urea Nitrogen 34 MG/DL (7-18); Calcium 9.7 MG/DL (8.5-10.1); Carbon Dioxide 31 MMOL/L (21-32); Chloride 99 MMOL/L (98-107); Glucose 86 MG/DL (74-106); Osmolality,Calculated 276.1 MOS/KG (273-304); Potassium 4.9 MMOL/L (3.5-5.1); Sodium 135 MMOL/L (136-145)
[2022-08-29] MEDS ORDERED: SODIUM CHLORIDE 0.9% 1,000 ML IV PRN (07:17)
[2022-08-29] MEDS: SODIUM CHLORIDE 0.9% 1,000 ML IV SCH (09:27)
[2022-08-29] MEDS: NON-FORMULARY MEDICATION (Sucroferric Oxyhydroxide [Velphoro] 500 mg tablet,chewable) PO SCH ×3 (12:34→17:30)
[2022-08-29] MEDS: cloNIDine 0.1 MG TABLET PO SCH ×3 (12:34→21:20)
[2022-08-29] MEDS: minoxidiL 2.5 MG TABLET PO SCH ×2 (12:35→21:19)
[2022-08-29] MEDS: carvediloL 25 MG TABLET PO SCH ×2 (12:35→21:19)
[2022-08-29] MEDS: ISOSORBIDE MONONITRATE 60 MG TABLET PO SCH ×2 (12:35→21:19)
[2022-08-29] MEDS: amLODIPine 10 MG TABLET PO SCH (12:36)
[2022-08-29] MEDS: PIPERACILLIN/TAZOBACTAM 3,375 MG in SODIUM CHLORIDE 0.9% 100 ML IV SCH ×2 (12:36→22:58)
[2022-08-29] MEDS: PANTOPRAZOLE 40 MG VIAL IV SCH ×2 (12:36→21:19)
[2022-08-29 13:58] LABS: Hematocrit 30.3 VOL% (35.7-47.0); Hemoglobin 9.6 GM/DL (12.0-16.0)
[2022-08-29] MEDS ORDERED: VANCOMYCIN INJ 1,500 MG in SODIUM CHLORIDE 0.9% 500 ML IV ONE (17:00)
[2022-08-29] MEDS: ATORVASTATIN 40 MG TABLET PO SCH (21:19)
[2022-08-29] MEDS: AMITRIPTYLINE 25 MG TABLET PO SCH (21:20)
[2022-08-30] MEDS: ALBUTEROL/IPRATROPIUM 3 ML NEB RESP TX SCH ×4 (00:38→20:40)
[2022-08-30] MEDS: MORPHINE 2 MG/1 ML SYRINGE IV PRN ×3 (02:57→20:47)
[2022-08-30 05:27] LABS: Basophils % 0.7 % (0.0-0.8); Eosinophils # 0.7 10*3/uL (0.0-0.87); Eosinophils % 11.9 % (0.00-10.9); Hematocrit 27.9 VOL% (35.7-47.0); Hemoglobin 8.6 GM/DL (12.0-16.0); Immature Granulocytes % 0.4 %; Immature Granulocytes Absolute 0.02 #; Lymphocytes % 18.1 % (21.3-54.2); Mean Corpuscular HGB Conc 30.8 GM/DL (32-36); Mean Corpuscular Volume 93.3 FL (87-102); Mean Platelet Volume 9.9 FL (9.6-12.0); Monocytes # 0.5 10*3/uL (0.11-0.8); Monocytes % 9.2 % (1.7-12.7); Neutrophils % 59.7 % (38.7-73.9); Platelet Count 152 T/CUMM (130-400); Red Blood Count 2.99 MC/CUMM (3.8-5.5); Red Cell Distribution Width 15.9 % (9.3-17.3); White Blood Count 5.6 T/CUMM (4-12)
[2022-08-30 05:49] LABS: Albumin 2.4 G/DL (3.4-5.0); Bilirubin,Total 0.7 MG/DL (0.20-1.00); Calcium 9.6 MG/DL (8.5-10.1); Eosinophils 11 % (0-10); Hypochromia 1+; Lymphocytes 14 % (20-55); Nucleated Red Blood Cells 1 /100 WBC (0-5); Osmolality,Calculated 282.5 MOS/KG (273-304); Polychromasia Slight; Potassium 4.5 MMOL/L (3.5-5.1); Total Cells Counted 100
[2022-08-30 05:50] LABS: Microcytosis Slight; Platelet Estimate Adequate
[2022-08-30] MEDS: SODIUM CHLORIDE 0.9% 1,000 ML IV SCH (09:22)
[2022-08-30] MEDS ORDERED: LIDOCAINE 2% 5 ML VIAL ONE (09:31)
[2022-08-30] MEDS ORDERED: ETOMIDATE 20 MG/10 ML VIAL IV ONE (09:31)
[2022-08-30] MEDS ORDERED: propofoL 200 MG/20 ML VIAL IV ONE (09:31)
[2022-08-30] MEDS: carvediloL 25 MG TABLET PO SCH ×2 (09:37→20:46)
[2022-08-30] MEDS: cloNIDine 0.1 MG TABLET PO SCH ×3 (09:37→20:46)
[2022-08-30] MEDS: NON-FORMULARY MEDICATION (Sucroferric Oxyhydroxide [Velphoro] 500 mg tablet,chewable) PO SCH ×3 (09:37→18:15)
[2022-08-30] MEDS: minoxidiL 2.5 MG TABLET PO SCH ×2 (09:38→20:46)
[2022-08-30] MEDS: ISOSORBIDE MONONITRATE 60 MG TABLET PO SCH ×2 (09:38→20:46)
[2022-08-30] MEDS: amLODIPine 10 MG TABLET PO SCH (09:38)
[2022-08-30] MEDS: PANTOPRAZOLE 40 MG VIAL IV SCH ×2 (09:39→20:49)
[2022-08-30] MEDS ORDERED: VANCOMYCIN INJ 500 MG in SODIUM CHLORIDE 0.9% 100 ML IV PRN (17:00)
[2022-08-30] MEDS: ATORVASTATIN 40 MG TABLET PO SCH (20:46)
[2022-08-30] MEDS: AMITRIPTYLINE 25 MG TABLET PO SCH (20:46)
[2022-08-31] MEDS: ALBUTEROL/IPRATROPIUM 3 ML NEB RESP TX SCH ×3 (01:28→13:00)
[2022-08-31] MEDS: MORPHINE 2 MG/1 ML SYRINGE IV PRN ×2 (03:07→10:36)
[2022-08-31 05:46] LABS: Basophils % 0.5 % (0.0-0.8); Eosinophils # 0.8 10*3/uL (0.0-0.87); Eosinophils % 11.9 % (0.00-10.9); Hematocrit 26.5 VOL% (35.7-47.0); Hemoglobin 8.3 GM/DL (12.0-16.0); Immature Granulocytes % 0.9 %; Immature Granulocytes Absolute 0.06 #; Lymphocytes % 15.9 % (21.3-54.2); Mean Corpuscular HGB Conc 31.3 GM/DL (32-36); Mean Platelet Volume 10.4 FL (9.6-12.0); Monocytes # 0.6 10*3/uL (0.11-0.8); Monocytes % 9.7 % (1.7-12.7); NRBC # 0.03 10*3/uL; Neutrophils % 61.1 % (38.7-73.9); Platelet Count 158 T/CUMM (130-400); Red Blood Count 2.88 MC/CUMM (3.8-5.5); Red Cell Distribution Width 15.9 % (9.3-17.3); White Blood Count 6.5 T/CUMM (4-12)
[2022-08-31 06:05] LABS: Calcium 9.1 MG/DL (8.5-10.1); Osmolality,Calculated 283.8 MOS/KG (273-304); Potassium 4.6 MMOL/L (3.5-5.1)
[2022-08-31 06:12] LABS: Eosinophils 14 % (0-10); Hypochromia Slight; Lymphocytes 15 % (20-55); Microcytosis Slight; Nucleated Red Blood Cells 1 /100 WBC (0-5); Platelet Estimate Adequate; Total Cells Counted 100
[2022-08-31] MEDS: ONDANSETRON 4 MG/2 ML VIAL IV PRN (10:37)
[2022-08-31] MEDS: SODIUM CHLORIDE 0.9% 1,000 ML IV SCH (13:13)
[2022-08-31] MEDS: PANTOPRAZOLE 40 MG VIAL IV SCH (13:15)
[2022-08-31] MEDS: minoxidiL 2.5 MG TABLET PO SCH (13:16)
[2022-08-31] MEDS: carvediloL 25 MG TABLET PO SCH (13:16)
[2022-08-31] MEDS: amLODIPine 10 MG TABLET PO SCH (13:16)
[2022-08-31] MEDS: ISOSORBIDE MONONITRATE 60 MG TABLET PO SCH (13:16)
[2022-08-31] MEDS: cloNIDine 0.1 MG TABLET PO SCH ×2 (13:16→16:15)
[2022-08-31] MEDS: NON-FORMULARY MEDICATION (Sucroferric Oxyhydroxide [Velphoro] 500 mg tablet,chewable) PO SCH (13:17)
[2022-08-31 13:26] VITALS: BP 145/73
== END 2022-08-31 15:20 | disposition home health service (06) | DRG 291 ==
LOC: N.EDINP 12:19 → N.ED 12:19 → SUATTDRO 14:30 → N.2W 15:30 → SUATTDRO 08-29 08:16 → N.5E 08-30 19:21
PROVIDERS: ADMIT Emergency Medicine; ATTEND Internal Medicine

== ENCOUNTER 2022-09-11 22:28 | Observation (INO) ==
[2022-09-12] MEDS ORDERED: NITROGLYCERIN 2% OINT 1 INCH/GM PACK TOP STA (00:02)
[2022-09-12] MEDS ORDERED: ONDANSETRON 4 MG/2 ML VIAL IV STA (00:02)
[2022-09-12] MEDS ORDERED: MORPHINE 2 MG/1 ML SYRINGE IV STA (00:02)
[2022-09-12] MEDS ORDERED: ASPIRIN 325 MG TABLET PO STA (00:02)
[2022-09-12 00:09] LABS: Basophils # 0.1 10*3/uL (0.0-0.2); Basophils % 0.7 % (0.0-0.8); Eosinophils # 0.4 10*3/uL (0.0-0.87); Eosinophils % 6.2 % (0.00-10.9); Hematocrit 26.5 VOL% (35.7-47.0); Hemoglobin 8.3 GM/DL (12.0-16.0); Immature Granulocytes % 0.4 %; Immature Granulocytes Absolute 0.03 #; Lymphocytes # 0.9 10*3/uL (1.4-4.0); Lymphocytes % 13.2 % (21.3-54.2); Mean Corpuscular HGB Conc 31.3 GM/DL (32-36); Mean Corpuscular Volume 89.5 FL (87-102); Mean Platelet Volume 10.5 FL (9.6-12.0); Monocytes # 0.5 10*3/uL (0.11-0.8); Neutrophils % 71.5 % (38.7-73.9); Platelet Count 216 T/CUMM (130-400); Red Blood Count 2.96 MC/CUMM (3.8-5.5); Red Cell Distribution Width 16.9 % (9.3-17.3); White Blood Count 6.8 T/CUMM (4-12)
[2022-09-12 00:21] LABS: Alanine Aminotransferase < 9 U/L (13-56); Alkaline Phosphatase 194 U/L (45-117); Aspartate Amino Transferase 17 U/L (0-37); Blood Urea Nitrogen 74 MG/DL (7-18); Calcium 10.3 MG/DL (8.5-10.1); Carbon Dioxide 29 MMOL/L (21-32); Chloride 95 MMOL/L (98-107); Glucose 94 MG/DL (74-106); Osmolality,Calculated 285.5 MOS/KG (273-304); Potassium 5.2 MMOL/L (3.5-5.1); Sodium 132 MMOL/L (136-145); Total Protein 8.2 G/DL (6.4-8.2)
[2022-09-12] MEDS ORDERED: hydrALAZINE 20 MG/1 ML VIAL IV STA (00:57)
[2022-09-12] MEDS ORDERED: ONDANSETRON 4 MG/2 ML VIAL IV PRN (01:07)
[2022-09-12] MEDS ORDERED: hydrALAZINE 20 MG/1 ML VIAL IV PRN (01:07)
[2022-09-12] MEDS ORDERED: NON-FORMULARY MEDICATION (Albuterol Sulfate [Ventolin Hfa] 90 mcg/actuation HFA aerosol in INH PRN (01:12)
[2022-09-12] MEDS ORDERED: ALBUTEROL/IPRATROPIUM 3 ML NEB RESP TX PRN (01:12)
[2022-09-12] MEDS ORDERED: POLYETHYLENE GLYCOL POWDER 17 GM PACK PO PRN (01:38)
[2022-09-12] MEDS: HEPARIN 5,000 UNIT/1 ML VIAL SUBCUT SCH ×2 (09:01→20:36)
[2022-09-12] MEDS: PANTOPRAZOLE 40 MG TABLET PO SCH ×2 (09:01→20:41)
[2022-09-12 10:53] LABS: Basophils % 0.8 % (0.0-0.8); Eosinophils # 0.4 10*3/uL (0.0-0.87); Eosinophils % 6.9 % (0.00-10.9); Hematocrit 25.2 VOL% (35.7-47.0); Immature Granulocytes % 0.4 %; Immature Granulocytes Absolute 0.02 #; Lymphocytes # 0.7 10*3/uL (1.4-4.0); Lymphocytes % 12.9 % (21.3-54.2); Mean Corpuscular HGB Conc 31.7 GM/DL (32-36); Mean Corpuscular Volume 89.7 FL (87-102); Mean Platelet Volume 10.1 FL (9.6-12.0); Monocytes # 0.2 10*3/uL (0.11-0.8); Monocytes % 3.3 % (1.7-12.7); Neutrophils % 75.7 % (38.7-73.9); Platelet Count 183 T/CUMM (130-400); Red Blood Count 2.81 MC/CUMM (3.8-5.5); Red Cell Distribution Width 16.9 % (9.3-17.3); White Blood Count 5.2 T/CUMM (4-12)
[2022-09-12] MEDS: NON-FORMULARY MEDICATION (Sucroferric Oxyhydroxide [Velphoro] 500 mg tablet,chewable) PO SCH ×2 (13:50→16:38)
[2022-09-12] MEDS: minoxidiL 2.5 MG TABLET PO SCH ×2 (13:51→20:41)
[2022-09-12] MEDS: ISOSORBIDE MONONITRATE 60 MG TABLET PO SCH ×2 (13:51→20:37)
[2022-09-12] MEDS: cloNIDine 0.1 MG TABLET PO SCH ×3 (13:51→20:37)
[2022-09-12] MEDS: carvediloL 25 MG TABLET PO SCH ×2 (13:51→20:41)
[2022-09-12] MEDS: amLODIPine 10 MG TABLET PO SCH (13:52)
[2022-09-12] MEDS ORDERED: ATORVASTATIN 40 MG TABLET PO SCH (21:00)
[2022-09-13 07:29] VITALS: BP 123/65
[2022-09-13] MEDS: ISOSORBIDE MONONITRATE 60 MG TABLET PO SCH (08:48)
[2022-09-13] MEDS: cloNIDine 0.1 MG TABLET PO SCH (08:48)
[2022-09-13] MEDS: carvediloL 25 MG TABLET PO SCH (08:49)
[2022-09-13] MEDS: amLODIPine 10 MG TABLET PO SCH (08:49)
[2022-09-13] MEDS: minoxidiL 2.5 MG TABLET PO SCH (08:49)
[2022-09-13] MEDS: PANTOPRAZOLE 40 MG TABLET PO SCH (08:49)
[2022-09-13] MEDS: HEPARIN 5,000 UNIT/1 ML VIAL SUBCUT SCH (08:50)
[2022-09-13] MEDS: NON-FORMULARY MEDICATION (Sucroferric Oxyhydroxide [Velphoro] 500 mg tablet,chewable) PO SCH (08:51)
== END 2022-09-13 10:43 | disposition home or self-care (01) ==
LOC: EDBD → EDUNIT# → N.ED 22:28 → N.EDINP 22:28 → N.2W 09-12 09:10
PROVIDERS: ADMIT Internal Medicine; ATTEND Internal Medicine

== ENCOUNTER 2022-10-30 07:20 | Observation (INO) ==
[~2022-10-30 07:20] MED LIST: LABETALOL 100 MG/20 ML VIAL IV STA; hydrALAZINE 20 MG/1 ML VIAL IV STA
[2022-10-30 07:32] LABS: Basophils % 0.6 % (0.0-0.8); Eosinophils # 0.3 10*3/uL (0.0-0.87); Eosinophils % 4.8 % (0.00-10.9); Immature Granulocytes % 0.4 %; Immature Granulocytes Absolute 0.03 #; Lymphocytes # 0.8 10*3/uL (1.4-4.0); Lymphocytes % 12.1 % (21.3-54.2); Mean Corpuscular HGB Conc 30.8 GM/DL (32-36); Mean Corpuscular Volume 85.8 FL (87-102); Mean Platelet Volume 10.8 FL (9.6-12.0); Monocytes # 0.6 10*3/uL (0.11-0.8); Monocytes % 8.8 % (1.7-12.7); Neutrophils % 73.3 % (38.7-73.9); Platelet Count 196 T/CUMM (130-400); Red Blood Count 3.03 MC/CUMM (3.8-5.5); Red Cell Distribution Width 16.5 % (9.3-17.3); White Blood Count 6.7 T/CUMM (4-12)
[2022-10-30 07:36] LABS: Alanine Aminotransferase < 9 U/L (13-56); Albumin 3.1 G/DL (3.4-5.0); Alkaline Phosphatase 226 U/L (45-117); Aspartate Amino Transferase 16 U/L (0-37); Blood Urea Nitrogen 55 MG/DL (7-18); Calcium 9.8 MG/DL (8.5-10.1); Carbon Dioxide 27 MMOL/L (21-32); Chloride 99 MMOL/L (98-107); Glucose 90 MG/DL (74-106); Osmolality,Calculated 289.7 MOS/KG (273-304); Potassium 4.5 MMOL/L (3.5-5.1); Sodium 138 MMOL/L (136-145)
[2022-10-30 07:40] LABS: INR 1.1
[2022-10-30] MEDS ORDERED: ALBUMIN 25% 12.5 GM/50 ML VIAL IV ONE (08:55)
[2022-10-30] MEDS ORDERED: LABETALOL 100 MG/20 ML VIAL IV STA (09:16)
[2022-10-30] MEDS ORDERED: HYDROmorphone 1 MG/1 ML SYRINGE IV STA (09:45)
[2022-10-30] MEDS ORDERED: ONDANSETRON 4 MG/2 ML VIAL IV STA (09:46)
[2022-10-30] MEDS ORDERED: ACETAMINOPHEN 325 MG TABLET PO PRN (11:40)
[2022-10-30] MEDS ORDERED: GLUCAGON 1 MG VIAL IM PRN (11:40)
[2022-10-30] MEDS ORDERED: DEXTROSE 10% 250 ML BAG IV PRN (11:40)
[2022-10-30] MEDS ORDERED: ONDANSETRON 4 MG/2 ML VIAL IV PRN (11:40)
[2022-10-30] MEDS ORDERED: ALBUTEROL 2.5 MG/3 ML NEB RESP TX PRN (11:51)
[2022-10-30] MEDS ORDERED: ALBUTEROL/IPRATROPIUM 3 ML NEB RESP TX PRN (11:51)
[2022-10-30] MEDS ORDERED: POLYETHYLENE GLYCOL POWDER 17 GM PACK PO PRN (12:49)
[2022-10-30] MEDS: NON-FORMULARY MEDICATION (Sucroferric Oxyhydroxide [Velphoro] 500 mg tablet,chewable) PO SCH (20:04)
[2022-10-30] MEDS: INSULIN LISPRO 100 UNIT/ML SUBCUT SCH ×2 (20:05→21:41)
[2022-10-30] MEDS: cloNIDine 0.1 MG TABLET PO SCH ×2 (20:05→21:37)
[2022-10-30] MEDS: ISOSORBIDE MONONITRATE 60 MG TABLET PO SCH (21:37)
[2022-10-30] MEDS: minoxidiL 2.5 MG TABLET PO SCH (21:37)
[2022-10-30] MEDS: carvediloL 6.25 MG TABLET PO SCH (21:37)
[2022-10-30] MEDS: PANTOPRAZOLE 40 MG TABLET PO SCH (21:37)
[2022-10-31 04:42] LABS: Basophils % 0.6 % (0.0-0.8); Eosinophils # 0.4 10*3/uL (0.0-0.87); Eosinophils % 6.3 % (0.00-10.9); Hematocrit 24.3 VOL% (35.7-47.0); Hemoglobin 7.8 GM/DL (12.0-16.0); Immature Granulocytes % 0.2 %; Immature Granulocytes Absolute 0.01 #; Lymphocytes % 15.8 % (21.3-54.2); Mean Corpuscular HGB Conc 32.1 GM/DL (32-36); Mean Corpuscular Volume 86.5 FL (87-102); Mean Platelet Volume 10.6 FL (9.6-12.0); Monocytes # 0.8 10*3/uL (0.11-0.8); Neutrophils % 64.1 % (38.7-73.9); Platelet Count 183 T/CUMM (130-400); Red Blood Count 2.81 MC/CUMM (3.8-5.5); Red Cell Distribution Width 16.5 % (9.3-17.3); White Blood Count 6.4 T/CUMM (4-12)
[2022-10-31 05:10] LABS: Alanine Aminotransferase < 9 U/L (13-56); Albumin 2.6 G/DL (3.4-5.0); Alkaline Phosphatase 199 U/L (45-117); Aspartate Amino Transferase 12 U/L (0-37); Blood Urea Nitrogen 32 MG/DL (7-18); Calcium 8.8 MG/DL (8.5-10.1); Carbon Dioxide 28 MMOL/L (21-32); Chloride 102 MMOL/L (98-107); Glucose 90 MG/DL (74-106); Osmolality,Calculated 279.8 MOS/KG (273-304); Potassium 4.5 MMOL/L (3.5-5.1); Sodium 137 MMOL/L (136-145); Total Protein 7.1 G/DL (6.4-8.2)
[2022-10-31] MEDS ORDERED: amLODIPine 10 MG TABLET PO SCH (09:00)
[2022-10-31 13:52] VITALS: BP 144/77
[2022-10-31] MEDS: PANTOPRAZOLE 40 MG TABLET PO SCH (14:11)
[2022-10-31] MEDS: cloNIDine 0.1 MG TABLET PO SCH ×2 (14:12→15:33)
[2022-10-31] MEDS: minoxidiL 2.5 MG TABLET PO SCH (14:12)
[2022-10-31] MEDS: carvediloL 6.25 MG TABLET PO SCH (14:12)
[2022-10-31] MEDS: NON-FORMULARY MEDICATION (Sucroferric Oxyhydroxide [Velphoro] 500 mg tablet,chewable) PO SCH ×2 (14:13→15:32)
[2022-10-31] MEDS: ISOSORBIDE MONONITRATE 60 MG TABLET PO SCH (14:14)
[2022-10-31] MEDS: INSULIN LISPRO 100 UNIT/ML SUBCUT SCH ×2 (14:14→15:32)
== END 2022-10-31 15:31 | disposition home or self-care (01) ==
LOC: N.EDINP 07:20 → N.ED 07:20 → N.EDINP 14:37 → N.TELES 15:34
PROVIDERS: ADMIT Internal Medicine; ATTEND Internal Medicine

== ENCOUNTER 2022-11-07 03:17 | Observation (INO) ==
[2022-11-07] MEDS ORDERED: MORPHINE 2 MG/1 ML SYRINGE IV STA (03:26)
[2022-11-07] MEDS ORDERED: hydrALAZINE 20 MG/1 ML VIAL IV STA (03:26)
[2022-11-07] MEDS ORDERED: ONDANSETRON 4 MG/2 ML VIAL IV STA (03:26)
[2022-11-07] MEDS ORDERED: NITROGLYCERIN 2% OINT 1 INCH/GM PACK TOP STA (03:26)
[2022-11-07] MEDS ORDERED: LABETALOL 20 MG/4 ML SYRINGE IV STA (04:28)
[2022-11-07 04:33] LABS: Basophils % 0.7 % (0.0-0.8); Eosinophils # 0.4 10*3/uL (0.0-0.87); Eosinophils % 6.8 % (0.00-10.9); Hematocrit 31.9 VOL% (35.7-47.0); Hemoglobin 9.9 GM/DL (12.0-16.0); Immature Granulocytes % 0.3 %; Immature Granulocytes Absolute 0.02 #; Lymphocytes # 0.5 10*3/uL (1.4-4.0); Mean Corpuscular Volume 87.2 FL (87-102); Mean Platelet Volume 11.5 FL (9.6-12.0); Monocytes # 0.4 10*3/uL (0.11-0.8); Monocytes % 6.8 % (1.7-12.7); Neutrophils % 76.4 % (38.7-73.9); Platelet Count 207 T/CUMM (130-400); Red Blood Count 3.66 MC/CUMM (3.8-5.5); Red Cell Distribution Width 17.3 % (9.3-17.3); White Blood Count 5.9 T/CUMM (4-12)
[2022-11-07 04:56] LABS: Alanine Aminotransferase < 6 U/L (13-56); Albumin 3.3 G/DL (3.4-5.0); Alkaline Phosphatase 217 U/L (45-117); Aspartate Amino Transferase 16 U/L (0-37); Blood Urea Nitrogen 60 MG/DL (7-18); Calcium 9.6 MG/DL (8.5-10.1); Carbon Dioxide 25 MMOL/L (21-32); Chloride 102 MMOL/L (98-107); Glucose 96 MG/DL (74-106); Osmolality,Calculated 291.7 MOS/KG (273-304); Potassium 4.9 MMOL/L (3.5-5.1); Sodium 138 MMOL/L (136-145)
[2022-11-07] MEDS ORDERED: ACETAMINOPHEN 325 MG TABLET PO PRN (05:05)
[2022-11-07] MEDS ORDERED: hydrALAZINE 20 MG/1 ML VIAL IV PRN (05:05)
[2022-11-07] MEDS ORDERED: ALBUTEROL/IPRATROPIUM 3 ML NEB RESP TX PRN (05:08)
[2022-11-07] MEDS ORDERED: ALBUTEROL 2.5 MG/3 ML NEB RESP TX PRN (07:59)
[2022-11-07] MEDS: MORPHINE 2 MG/1 ML SYRINGE IV PRN ×2 (08:40→15:18)
[2022-11-07] MEDS: NITROGLYCERIN 2% OINT 1 INCH/GM PACK TOP SCH ×3 (08:41→20:53)
[2022-11-07] MEDS: amLODIPine 10 MG TABLET PO SCH (08:43)
[2022-11-07] MEDS: minoxidiL 2.5 MG TABLET PO SCH ×2 (08:43→20:53)
[2022-11-07] MEDS: ISOSORBIDE MONONITRATE 60 MG TABLET PO SCH ×2 (08:43→20:52)
[2022-11-07] MEDS: carvediloL 6.25 MG TABLET PO SCH ×2 (08:43→16:48)
[2022-11-07] MEDS: NON-FORMULARY MEDICATION (Sucroferric Oxyhydroxide [Velphoro] 500 mg tablet,chewable) PO SCH ×3 (08:53→16:48)
[2022-11-07 09:22] LABS: Barbiturates Screen,Urine Negative (Negative); Benzodiazepines Screen,Urine Negative (Negative); Cannabinoid Screen,Urine Negative (Negative); Opiate Screen,Urine Positive (Negative); Phencyclidine Screen,Urine Negative (Negative)
[2022-11-07] MEDS: ATORVASTATIN 40 MG TABLET PO SCH (20:53)
[2022-11-08] MEDS: MORPHINE 2 MG/1 ML SYRINGE IV PRN ×4 (00:38→22:07)
[2022-11-08] MEDS: NITROGLYCERIN 2% OINT 1 INCH/GM PACK TOP SCH ×4 (03:45→22:01)
[2022-11-08 05:58] LABS: Basophils % 0.7 % (0.0-0.8); Eosinophils # 0.5 10*3/uL (0.0-0.87); Eosinophils % 8.6 % (0.00-10.9); Hemoglobin 6.9 GM/DL (12.0-16.0); Immature Granulocytes % 0.5 %; Immature Granulocytes Absolute 0.03 #; Lymphocytes # 0.9 10*3/uL (1.4-4.0); Mean Corpuscular HGB Conc 31.4 GM/DL (32-36); Mean Corpuscular Volume 86.6 FL (87-102); Mean Platelet Volume 10.4 FL (9.6-12.0); Monocytes # 0.4 10*3/uL (0.11-0.8); Monocytes % 7.7 % (1.7-12.7); Neutrophils % 67.5 % (38.7-73.9); Platelet Count 210 T/CUMM (130-400); Red Blood Count 2.54 MC/CUMM (3.8-5.5); White Blood Count 5.7 T/CUMM (4-12)
[2022-11-08 06:34] LABS: Alanine Aminotransferase < 6 U/L (13-56); Albumin 2.6 G/DL (3.4-5.0); Alkaline Phosphatase 186 U/L (45-117); Aspartate Amino Transferase 11 U/L (0-37); Blood Urea Nitrogen 30 MG/DL (7-18); Calcium 9.2 MG/DL (8.5-10.1); Carbon Dioxide 28 MMOL/L (21-32); Chloride 101 MMOL/L (98-107); Glucose 84 MG/DL (74-106); Osmolality,Calculated 279.7 MOS/KG (273-304); Potassium 4.4 MMOL/L (3.5-5.1); Sodium 138 MMOL/L (136-145); Total Protein 7.3 G/DL (6.4-8.2)
[2022-11-08 07:44] LABS: Hematocrit 23.9 VOL% (35.7-47.0); Hemoglobin 7.2 GM/DL (12.0-16.0)
[2022-11-08] MEDS ORDERED: SODIUM CHLORIDE 0.9% 1,000 ML IV PRN (10:27)
[2022-11-08] MEDS: ISOSORBIDE MONONITRATE 60 MG TABLET PO SCH ×2 (15:32→23:46)
[2022-11-08] MEDS: NON-FORMULARY MEDICATION (Sucroferric Oxyhydroxide [Velphoro] 500 mg tablet,chewable) PO SCH ×3 (15:32→16:21)
[2022-11-08] MEDS: amLODIPine 10 MG TABLET PO SCH (15:33)
[2022-11-08] MEDS: carvediloL 6.25 MG TABLET PO SCH ×2 (15:33→16:25)
[2022-11-08] MEDS: minoxidiL 2.5 MG TABLET PO SCH ×2 (15:33→22:01)
[2022-11-08] MEDS: ATORVASTATIN 40 MG TABLET PO SCH (22:02)
[2022-11-09] MEDS: NITROGLYCERIN 2% OINT 1 INCH/GM PACK TOP SCH ×2 (02:19→08:35)
[2022-11-09] MEDS: MORPHINE 2 MG/1 ML SYRINGE IV PRN (03:47)
[2022-11-09 06:47] LABS: Basophils # 0.1 10*3/uL (0.0-0.2); Basophils % 0.9 % (0.0-0.8); Eosinophils # 0.5 10*3/uL (0.0-0.87); Eosinophils % 8.2 % (0.00-10.9); Hemoglobin 7.8 GM/DL (12.0-16.0); Immature Granulocytes % 0.2 %; Immature Granulocytes Absolute 0.01 #; Lymphocytes # 0.7 10*3/uL (1.4-4.0); Lymphocytes % 12.3 % (21.3-54.2); Mean Corpuscular HGB Conc 31.2 GM/DL (32-36); Mean Corpuscular Volume 87.1 FL (87-102); Mean Platelet Volume 10.6 FL (9.6-12.0); Monocytes # 0.5 10*3/uL (0.11-0.8); Monocytes % 8.7 % (1.7-12.7); Neutrophils % 69.7 % (38.7-73.9); Platelet Count 204 T/CUMM (130-400); Red Blood Count 2.87 MC/CUMM (3.8-5.5); Red Cell Distribution Width 16.6 % (9.3-17.3); White Blood Count 5.6 T/CUMM (4-12)
[2022-11-09 07:03] LABS: Calcium 9.2 MG/DL (8.5-10.1); Osmolality,Calculated 277.7 MOS/KG (273-304); Potassium 4.4 MMOL/L (3.5-5.1)
[2022-11-09 08:12] VITALS: BP 137/84
[2022-11-09] MEDS: carvediloL 6.25 MG TABLET PO SCH (08:34)
[2022-11-09] MEDS: ISOSORBIDE MONONITRATE 60 MG TABLET PO SCH (08:38)
[2022-11-09] MEDS: minoxidiL 2.5 MG TABLET PO SCH (08:39)
[2022-11-09] MEDS: amLODIPine 10 MG TABLET PO SCH (08:40)
[2022-11-09] MEDS: NON-FORMULARY MEDICATION (Sucroferric Oxyhydroxide [Velphoro] 500 mg tablet,chewable) PO SCH ×2 (09:22→11:24)
== END 2022-11-09 16:00 | disposition home or self-care (01) ==
LOC: N.EDINP 03:17 → N.ED 03:17 → N.2W 07:53
PROVIDERS: ADMIT Internal Medicine; ATTEND Internal Medicine

== ENCOUNTER 2022-11-13 09:46 | Observation (INO) ==
[2022-11-13 11:05] LABS: Basophils % 0.5 % (0.0-0.8); Eosinophils # 0.4 10*3/uL (0.0-0.87); Eosinophils % 5.5 % (0.00-10.9); Hematocrit 25.7 VOL% (35.7-47.0); Hemoglobin 8.1 GM/DL (12.0-16.0); Immature Granulocytes % 0.5 %; Immature Granulocytes Absolute 0.04 #; Lymphocytes # 0.9 10*3/uL (1.4-4.0); Lymphocytes % 11.6 % (21.3-54.2); Mean Corpuscular HGB Conc 31.5 GM/DL (32-36); Mean Corpuscular Volume 85.1 FL (87-102); Mean Platelet Volume 11.3 FL (9.6-12.0); Monocytes # 0.9 10*3/uL (0.11-0.8); Monocytes % 11.6 % (1.7-12.7); Neutrophils % 70.3 % (38.7-73.9); Platelet Count 201 T/CUMM (130-400); Red Blood Count 3.02 MC/CUMM (3.8-5.5); Red Cell Distribution Width 16.3 % (9.3-17.3); White Blood Count 7.5 T/CUMM (4-12)
[2022-11-13 11:34] LABS: Albumin 2.9 G/DL (3.4-5.0); Bilirubin,Total 1.2 MG/DL (0.20-1.00); Calcium 9.5 MG/DL (8.5-10.1); Potassium 4.4 MMOL/L (3.5-5.1); Total Protein 7.9 G/DL (6.4-8.2)
[2022-11-13 11:56] LABS: Barbiturates Screen,Urine Negative (Negative); Benzodiazepines Screen,Urine Negative (Negative); Cannabinoid Screen,Urine Negative (Negative); Opiate Screen,Urine Positive (Negative); Phencyclidine Screen,Urine Negative (Negative)
[2022-11-13] MEDS ORDERED: ACETAMINOPHEN 325 MG TABLET PO PRN (13:48)
[2022-11-13] MEDS ORDERED: ONDANSETRON 4 MG/2 ML VIAL IV PRN (13:48)
[2022-11-13] MEDS ORDERED: ALBUTEROL 2.5 MG/3 ML NEB RESP TX PRN (14:02)
[2022-11-13] MEDS ORDERED: POLYETHYLENE GLYCOL POWDER 17 GM PACK PO PRN (14:07)
[2022-11-13] MEDS: DEXAMETHASONE 4 MG TABLET PO SCH (14:35)
[2022-11-13] MEDS: cloNIDine 0.1 MG TABLET PO SCH ×2 (16:15→22:42)
[2022-11-13] MEDS ORDERED: NON-FORMULARY MEDICATION (Sucroferric Oxyhydroxide [Velphoro] 500 mg tablet,chewable) PO SCH (17:00)
[2022-11-13] MEDS: PANTOPRAZOLE 40 MG TABLET PO SCH (22:37)
[2022-11-13] MEDS: minoxidiL 2.5 MG TABLET PO SCH (22:37)
[2022-11-13] MEDS: carvediloL 6.25 MG TABLET PO SCH (22:37)
[2022-11-13] MEDS: ATORVASTATIN 40 MG TABLET PO SCH (22:37)
[2022-11-13] MEDS: ISOSORBIDE MONONITRATE 60 MG TABLET PO SCH (22:37)
[2022-11-13] MEDS: ENOXAPARIN 30 MG/0.3 ML SYRINGE SUBCUT SCH (22:38)
[2022-11-14] MEDS ORDERED: EPOETIN ALFA-EPBX 4,000 UNIT/ML VIAL IV PRN (09:00)
[2022-11-14] MEDS: NON-FORMULARY MEDICATION (Sucroferric Oxyhydroxide [Velphoro] 500 mg tablet,chewable) PO SCH ×3 (09:17→16:16)
[2022-11-14] MEDS: cloNIDine 0.1 MG TABLET PO SCH ×3 (09:19→20:53)
[2022-11-14] MEDS: carvediloL 6.25 MG TABLET PO SCH ×2 (09:19→20:53)
[2022-11-14] MEDS: ISOSORBIDE MONONITRATE 60 MG TABLET PO SCH ×2 (09:20→20:53)
[2022-11-14] MEDS: minoxidiL 2.5 MG TABLET PO SCH ×2 (09:24→20:54)
[2022-11-14] MEDS: amLODIPine 10 MG TABLET PO SCH (09:24)
[2022-11-14] MEDS: DEXAMETHASONE 4 MG TABLET PO SCH (09:27)
[2022-11-14] MEDS: PANTOPRAZOLE 40 MG TABLET PO SCH ×2 (09:27→20:54)
[2022-11-14 14:31] LABS: Basophils % 0.4 % (0.0-0.8); Eosinophils % 0.7 % (0.00-10.9); Hematocrit 23.8 VOL% (35.7-47.0); Hemoglobin 7.6 GM/DL (12.0-16.0); Immature Granulocytes % 0.6 %; Immature Granulocytes Absolute 0.03 #; Lymphocytes # 0.4 10*3/uL (1.4-4.0); Lymphocytes % 7.6 % (21.3-54.2); Mean Corpuscular HGB Conc 31.9 GM/DL (32-36); Mean Platelet Volume 10.4 FL (9.6-12.0); Monocytes # 0.2 10*3/uL (0.11-0.8); Monocytes % 2.8 % (1.7-12.7); Neutrophils % 87.9 % (38.7-73.9); Platelet Count 194 T/CUMM (130-400); Red Cell Distribution Width 16.2 % (9.3-17.3); White Blood Count 5.4 T/CUMM (4-12)
[2022-11-14 14:58] LABS: Alanine Aminotransferase < 9 U/L (13-56); Albumin 2.7 G/DL (3.4-5.0); Alkaline Phosphatase 202 U/L (45-117); Aspartate Amino Transferase 12 U/L (0-37); Blood Urea Nitrogen 60 MG/DL (7-18); Calcium 8.9 MG/DL (8.5-10.1); Carbon Dioxide 25 MMOL/L (21-32); Chloride 98 MMOL/L (98-107); Glucose 160 MG/DL (74-106); Osmolality,Calculated 287.2 MOS/KG (273-304); Potassium 4.8 MMOL/L (3.5-5.1); Sodium 134 MMOL/L (136-145); Total Protein 7.3 G/DL (6.4-8.2)
[2022-11-14 15:27] LABS: Hepatitis B Core IgM Quant 0.39 Index; Hepatitis B Surface Ag Quant < 0.10 Index; Hepatitis B Surface Ag Result Non-Reactive (NonReactive); Hepatitis C Virus Ab Quant 0.02 Index; Hepatitis C Virus Ab Result Non-Reactive (NonReactive)
[2022-11-14] MEDS: ATORVASTATIN 40 MG TABLET PO SCH (20:53)
[2022-11-14] MEDS: ENOXAPARIN 30 MG/0.3 ML SYRINGE SUBCUT SCH (20:54)
[2022-11-15] MEDS: NON-FORMULARY MEDICATION (Sucroferric Oxyhydroxide [Velphoro] 500 mg tablet,chewable) PO SCH ×2 (07:47→11:20)
[2022-11-15 08:42] VITALS: BP 156/94
[2022-11-15] MEDS: cloNIDine 0.1 MG TABLET PO SCH (08:45)
[2022-11-15] MEDS: ISOSORBIDE MONONITRATE 60 MG TABLET PO SCH (08:46)
[2022-11-15] MEDS: PANTOPRAZOLE 40 MG TABLET PO SCH (08:46)
[2022-11-15] MEDS: amLODIPine 10 MG TABLET PO SCH (08:46)
[2022-11-15] MEDS: carvediloL 6.25 MG TABLET PO SCH (08:46)
[2022-11-15] MEDS: minoxidiL 2.5 MG TABLET PO SCH (08:46)
[2022-11-15] MEDS: DEXAMETHASONE 4 MG TABLET PO SCH (08:46)
== END 2022-11-15 11:54 | disposition home or self-care (01) ==
LOC: N.EDINP 09:46 → N.ED 09:46 → N.2W 17:59
PROVIDERS: ADMIT Internal Medicine Geriatric Medicine; ATTEND Internal Medicine Geriatric Medicine

== ENCOUNTER 2022-11-26 22:13 | Inpatient (IN) ==
[2022-11-26] MEDS ORDERED: ONDANSETRON 4 MG/2 ML VIAL IV ONE (22:35)
[2022-11-26] MEDS ORDERED: MORPHINE 2 MG/1 ML SYRINGE IV STA (22:35)
[2022-11-26 23:01] LABS: Basophils % 0.4 % (0.0-0.8); Eosinophils # 0.3 10*3/uL (0.0-0.87); Eosinophils % 3.5 % (0.00-10.9); Hematocrit 26.9 VOL% (35.7-47.0); Hemoglobin 8.7 GM/DL (12.0-16.0); Immature Granulocytes % 0.5 %; Immature Granulocytes Absolute 0.04 #; Lymphocytes # 0.9 10*3/uL (1.4-4.0); Lymphocytes % 10.4 % (21.3-54.2); Mean Corpuscular HGB Conc 32.3 GM/DL (32-36); Mean Corpuscular Volume 84.9 FL (87-102); Mean Platelet Volume 9.9 FL (9.6-12.0); Monocytes # 0.8 10*3/uL (0.11-0.8); Monocytes % 10.1 % (1.7-12.7); Neutrophils % 75.1 % (38.7-73.9); Platelet Count 215 T/CUMM (130-400); Red Blood Count 3.17 MC/CUMM (3.8-5.5); Red Cell Distribution Width 16.9 % (9.3-17.3); White Blood Count 8.33 T/CUMM (4-12)
[2022-11-26 23:22] LABS: Alanine Aminotransferase < 9 U/L (13-56); Alkaline Phosphatase 214 U/L (45-117); Aspartate Amino Transferase 15 U/L (0-37); Blood Urea Nitrogen 47 MG/DL (7-18); Calcium 9.3 MG/DL (8.5-10.1); Carbon Dioxide 29 MMOL/L (21-32); Chloride 99 MMOL/L (98-107); Glucose 110 MG/DL (74-106); Osmolality,Calculated 287.7 MOS/KG (273-304); Potassium 3.7 MMOL/L (3.5-5.1); Sodium 138 MMOL/L (136-145); Total Protein 7.7 G/DL (6.4-8.2)
[2022-11-27] MEDS ORDERED: ONDANSETRON 4 MG/2 ML VIAL IV PRN (01:08)
[2022-11-27] MEDS ORDERED: SIMETHICONE CHEW 125 MG TABLET PO PRN (01:08)
[2022-11-27] MEDS ORDERED: ALBUTEROL 2.5 MG/3 ML NEB RESP TX PRN (01:08)
[2022-11-27] MEDS ORDERED: hydrALAZINE 20 MG/1 ML VIAL IV PRN (01:08)
[2022-11-27] MEDS ORDERED: ACETAMINOPHEN 325 MG TABLET PO PRN (01:08)
[2022-11-27 06:08] LABS: Basophils % 0.5 % (0.0-0.8); Eosinophils # 0.4 10*3/uL (0.0-0.87); Eosinophils % 4.3 % (0.00-10.9); Hemoglobin 8.8 GM/DL (12.0-16.0); Immature Granulocytes % 0.2 %; Immature Granulocytes Absolute 0.02 #; Lymphocytes # 0.9 10*3/uL (1.4-4.0); Lymphocytes % 10.5 % (21.3-54.2); Mean Corpuscular HGB Conc 31.4 GM/DL (32-36); Mean Corpuscular Volume 85.9 FL (87-102); Mean Platelet Volume 10.3 FL (9.6-12.0); Monocytes # 0.8 10*3/uL (0.11-0.8); Monocytes % 9.9 % (1.7-12.7); Neutrophils % 74.6 % (38.7-73.9); Platelet Count 209 T/CUMM (130-400); Red Blood Count 3.26 MC/CUMM (3.8-5.5); Red Cell Distribution Width 16.9 % (9.3-17.3); White Blood Count 8.08 T/CUMM (4-12)
[2022-11-27 06:43] LABS: Calcium 9.7 MG/DL (8.5-10.1); Osmolality,Calculated 285.8 MOS/KG (273-304); Potassium 3.9 MMOL/L (3.5-5.1)
[2022-11-27 07:59] LABS: INR 1.1; PT Patient Result 12.1 SECS (10.1-12.1)
[2022-11-27] MEDS ORDERED: ALBUMIN 25% 12.5 GM/50 ML VIAL IV ONE ×2 (08:49→08:50)
[2022-11-27] MEDS: amLODIPine 10 MG TABLET PO SCH (09:51)
[2022-11-27] MEDS: carvediloL 6.25 MG TABLET PO SCH ×2 (09:51→20:50)
[2022-11-27] MEDS: POLYETHYLENE GLYCOL POWDER 17 GM PACK PO PRN (09:51)
[2022-11-27] MEDS: PANTOPRAZOLE 40 MG TABLET PO SCH (09:51)
[2022-11-27] MEDS: minoxidiL 2.5 MG TABLET PO SCH ×2 (09:51→20:51)
[2022-11-27] MEDS: DOCUSATE SODIUM 100 MG CAPSULE PO SCH ×2 (09:51→20:50)
[2022-11-27 09:55] LABS: Neutrophils,Peritoneal Fluid 7 %; RBC,Peritoneal Fluid 2168 T/CUMM
[2022-11-27] MEDS: ISOSORBIDE MONONITRATE 60 MG TABLET PO SCH ×2 (09:56→20:51)
[2022-11-27] MEDS: ATORVASTATIN 40 MG TABLET PO SCH (20:50)
[2022-11-28 04:10] LABS: Barbiturates Screen,Urine Negative (Negative); Benzodiazepines Screen,Urine Negative (Negative); Cannabinoid Screen,Urine Negative (Negative); Opiate Screen,Urine Positive (Negative); Phencyclidine Screen,Urine Negative (Negative)
[2022-11-28 04:45] LABS: Basophils % 0.5 % (0.0-0.8); Eosinophils # 0.4 10*3/uL (0.0-0.87); Eosinophils % 4.9 % (0.00-10.9); Hematocrit 25.4 VOL% (35.7-47.0); Hemoglobin 7.9 GM/DL (12.0-16.0); Immature Granulocytes % 0.4 %; Immature Granulocytes Absolute 0.03 #; Lymphocytes % 13.1 % (21.3-54.2); Mean Corpuscular HGB Conc 31.1 GM/DL (32-36); Mean Corpuscular Volume 85.2 FL (87-102); Mean Platelet Volume 10.7 FL (9.6-12.0); Monocytes # 0.7 10*3/uL (0.11-0.8); Monocytes % 9.4 % (1.7-12.7); Neutrophils % 71.7 % (38.7-73.9); Platelet Count 210 T/CUMM (130-400); Red Blood Count 2.98 MC/CUMM (3.8-5.5); Red Cell Distribution Width 16.9 % (9.3-17.3); White Blood Count 7.54 T/CUMM (4-12)
[2022-11-28 05:09] LABS: Calcium 8.3 MG/DL (8.5-10.1); Osmolality,Calculated 290.7 MOS/KG (273-304); Potassium 4.3 MMOL/L (3.5-5.1)
[2022-11-28] MEDS: DOCUSATE SODIUM 100 MG CAPSULE PO SCH ×2 (08:29→21:56)
[2022-11-28] MEDS: POLYETHYLENE GLYCOL POWDER 17 GM PACK PO PRN (08:29)
[2022-11-28] MEDS: amLODIPine 10 MG TABLET PO SCH (08:29)
[2022-11-28] MEDS: PANTOPRAZOLE 40 MG TABLET PO SCH (08:29)
[2022-11-28] MEDS: ISOSORBIDE MONONITRATE 60 MG TABLET PO SCH ×2 (08:29→21:56)
[2022-11-28] MEDS: carvediloL 6.25 MG TABLET PO SCH ×2 (08:29→21:56)
[2022-11-28] MEDS: minoxidiL 2.5 MG TABLET PO SCH ×2 (08:29→21:56)
[2022-11-28 19:35] LABS: Hepatitis B Core IgM Quant 0.48 Index; Hepatitis B Surface Ag Quant < 0.10 Index; Hepatitis B Surface Ag Result Non-Reactive (NonReactive); Hepatitis C Virus Ab Quant < 0.02 Index; Hepatitis C Virus Ab Result Non-Reactive (NonReactive)
[2022-11-28] MEDS: ATORVASTATIN 40 MG TABLET PO SCH (21:56)
[2022-11-29] MEDS: MORPHINE 2 MG/1 ML SYRINGE IV PRN ×3 (00:29→09:03)
[2022-11-29 05:19] LABS: Basophils % 0.3 % (0.0-0.8); Eosinophils # 0.4 10*3/uL (0.0-0.87); Eosinophils % 6.4 % (0.00-10.9); Hemoglobin 7.9 GM/DL (12.0-16.0); Immature Granulocytes % 0.3 %; Immature Granulocytes Absolute 0.02 #; Lymphocytes # 0.8 10*3/uL (1.4-4.0); Lymphocytes % 14.1 % (21.3-54.2); Mean Corpuscular HGB Conc 30.4 GM/DL (32-36); Mean Platelet Volume 10.2 FL (9.6-12.0); Monocytes # 0.5 10*3/uL (0.11-0.8); Monocytes % 8.4 % (1.7-12.7); Neutrophils % 70.5 % (38.7-73.9); Platelet Count 228 T/CUMM (130-400); Red Blood Count 2.99 MC/CUMM (3.8-5.5); Red Cell Distribution Width 17.2 % (9.3-17.3); White Blood Count 5.97 T/CUMM (4-12)
[2022-11-29 05:48] LABS: Alanine Aminotransferase < 9 U/L (13-56); Albumin 2.4 G/DL (3.4-5.0); Alkaline Phosphatase 174 U/L (45-117); Aspartate Amino Transferase 7 U/L (0-37); Blood Urea Nitrogen 34 MG/DL (7-18); Calcium 8.4 MG/DL (8.5-10.1); Carbon Dioxide 27 MMOL/L (21-32); Chloride 102 MMOL/L (98-107); Glucose 93 MG/DL (74-106); Osmolality,Calculated 284.5 MOS/KG (273-304); Sodium 139 MMOL/L (136-145); Total Protein 6.7 G/DL (6.4-8.2)
[2022-11-29] MEDS: minoxidiL 2.5 MG TABLET PO SCH (08:59)
[2022-11-29] MEDS: ISOSORBIDE MONONITRATE 60 MG TABLET PO SCH (08:59)
[2022-11-29] MEDS: amLODIPine 10 MG TABLET PO SCH (08:59)
[2022-11-29] MEDS: carvediloL 6.25 MG TABLET PO SCH (08:59)
[2022-11-29] MEDS: DOCUSATE SODIUM 100 MG CAPSULE PO SCH (09:00)
[2022-11-29] MEDS: PANTOPRAZOLE 40 MG TABLET PO SCH (09:00)
[2022-11-29 09:21] VITALS: BP 120/56
== END 2022-11-29 12:00 | disposition home or self-care (01) | DRG 291 ==
LOC: N.ED 22:13 → N.2E 11-27 01:08 → SUATTDRO 11-27 01:08 → N.2E 11-27 02:04
PROVIDERS: ADMIT Hospitalist; ATTEND Family Medicine